=== PATIENT | male | born 1955 | race African-American/Black ===

== ENCOUNTER 2016-04-04 05:20 | Emergency (ER) | payer OTHER ==
[2016-04-04 06:55] LABS: ABSOLUTE EOSINOPHILS # (AUTO) 0.2 10^3/uL (0.0-0.6); ABSOLUTE LYMPHOCYTES (AUTO) 1.2 10^3/uL (0.5-4.7); ABSOLUTE MONOCYTES (AUTO) 0.5 10^3/uL (0.1-1.4); ABSOLUTE NEUT (AUTO) 3.7 10^3/uL (1.7-8.2); BASOPHILS % (AUTO) 0.5 % (0-2); EOSINOPHILS % (AUTO) 4.1 % (0-6); HEMOGLOBIN 12.1 g/dL (13.5-17.0); HGB HCT DIFFERENCE -1.7; LYMPHOCYTES % (AUTO) 21.6 % (13-45); MEAN CORPUSCULAR HEMOGLOBIN 27.7 pg (27.0-33.4); MEAN CORPUSCULAR HGB CONC 31.9 g/dL (32.0-36.0); MEAN CORPUSCULAR VOLUME 87 fl (80-97); MONOCYTES % (AUTO) 9.5 % (3-13); RED BLOOD COUNT 4.38 10^6/uL (4.35-5.55); RED CELL DISTRIBUTION WIDTH 15.4 % (11.5-14.0); SEGMENTED NEUTROPHILS % (AUTO) 64.3 % (42-78); WHITE BLOOD COUNT 5.8 10^3/uL (4.0-10.5)
[2016-04-04 07:08] LABS: ALANINE AMINOTRANSFERASE 19 U/L (21-72); ALBUMIN 4.2 g/dL (3.5-5.0); ALKALINE PHOSPHATASE 104 U/L (38-126); ANION GAP 14 (5-19); ASPARTATE AMINO TRANSFERASE 11 U/L (17-59); BILIRUBIN,TOTAL 0.8 mg/dL (0.2-1.3); BLOOD UREA NITROGEN 12 mg/dL (7-20); CALCIUM 9.4 mg/dL (8.4-10.2); CARBON DIOXIDE 25 mmol/L (22-30); CHLORIDE 104 mmol/L (98-107); CREATININE RESULT 0.96 mg/dL (0.52-1.25); GLUCOSE 106 mg/dL (75-110); LIPASE 26.3 U/L (23-300); TOTAL PROTEIN 7.1 g/dL (6.3-8.2)
--- NOTE | 2016-04-04 07:15 | ER Document Report ---
ED General - General Chief Complaint: Abdominal Pain Stated Complaint: ABDOMINAL PAIN Mode of Arrival: Ambulatory Information source: Patient Notes: 60-year-old male presents with complaints of constipation. pt denies any fevers or chills, nausea or vomiting. Pt notes he last had a bowel movement 3-4 days ago. TRAVEL OUTSIDE OF THE [place] IN LAST 30 DAYS: No - HPI Onset: Other - 4 days Onset/Duration: Intermittent Quality of pain: Cramping Severity: Mild Pain Level: 1 Associated symptoms: None Exacerbated by: Denies Relieved by: Denies Similar symptoms previously: No Recently seen / treated by doctor: No - Related Data Allergies/Adverse Reactions: No Known Allergies Allergy (Verified 08/02/14 20:07) Past Medical History - Social History Smoking Status: Never Smoker Cigarette use (# per day): No Chew tobacco use (# tins/day): No Smoking Education Provided: No Frequency of alcohol use: None Drug Abuse: None Family History: Reviewed & Not Pertinent Patient has suicidal ideation: No Patient has homicidal ideation: No - Past Medical History Cardiac Medical History: Reports: Hx Coronary Artery Disease, Hx Hypercholesterolemia, Hx Hypertension Pulmonary Medical History: Reports: Hx COPD Neurological Medical History: Reports: Hx Cerebrovascular Accident Renal/ Medical History: Denies: Hx Peritoneal Dialysis Past Surgical History: Reports: Hx Cardiac Surgery, Hx Coronary Stent - Immunizations Hx Diphtheria, Pertussis, Tetanus Vaccination: Yes Review of Systems - Review of Systems Notes: REVIEW OF SYSTEMS: CONSTITUTIONAL : Denies fever, chills, or sweats. Denies recent illness. EENT: Denies eye, ear, throat, or mouth pain or symptoms. Denies nasal or sinus congestion or discharge. Denies throat, tongue, or mouth swelling or difficulty swallowing. CARDIOVASCULAR: Denies chest pain. Denies palpitations or racing or irregular heart beat. Denies ankle edema. RESPIRATORY: Denies cough, cold, or chest congestion. Denies shortness of breath, difficulty breathing, or wheezing. GASTROINTESTINAL: abd pain constipation GENITOURINARY: Denies difficulty urinating, painful urination, burning, frequency, blood in urine, or discharge. MUSCULOSKELETAL: Denies back or neck pain or stiffness. Denies joint pain or swelling. SKIN: Denies rash, lesions or sores. HEMATOLOGIC : Denies easy bruising or bleeding. LYMPHATIC: Denies swollen, enlarged glands. NEUROLOGICAL: Denies confusion or altered mental status. Denies passing out or loss of consciousness. Denies dizziness or lightheadedness. Denies headache. Denies new weakness or paralysis or loss of use of either side. Denies problems with gait or speech. Denies sensory loss, numbness, or tingling. Denies seizures. PSYCHIATRIC: Denies anxiety or stress. Denies depression, suicidal ideation, or homicidal ideation. ALL OTHER SYSTEMS REVIEWED AND NEGATIVE. Dictation was performed using [employer] voice recognition software PHYSICAL EXAMINATION: GENERAL: Well-appearing, well-nourished and in no acute distress. HEAD: Atraumatic, normocephalic. EYES: Pupils equal round and reactive to light, extraocular movements intact, sclera anicteric, conjunctiva are normal. ENT: Nares patent, oropharynx clear without exudates. Moist mucous membranes. NECK: Normal range of motion, supple without lymphadenopathy LUNGS: Breath sounds clear to auscultation bilaterally and equal. No wheezes rales or rhonchi. HEART: Regular rate and rhythm without murmurs ABDOMEN: Soft, nontender, nondistended abdomen. No guarding, no rebound. No masses appreciated. G tube in place Musculoskeletal: right sided deficits NEUROLOGICAL: Cranial nerves grossly intact. Normal speech, normal gait. Normal sensory, motor exams PSYCH: Normal mood, normal affect. SKIN: Warm, Dry, normal turgor, no rashes or lesions noted. Physical Exam - Vital signs Vitals: Temp Pulse Resp BP Pulse Ox 98.5 F 84 20 136/94 H 99 04/04/16 05:32 04/04/16 05:32 04/04/16 05:32 04/04/16 05:32 04/04/16 05:32 Course - Re-evaluation Re-evalutation: 04/04/16 07:14 Patient notes his G-tube is to be removed, and there waiting for the blood thinners to come out of his system before they were to do so I believe patient has constipation lab work imaging are pending to rule out any other etiology 04/04/16 07:54 abdominal abnormalities are lab work noted, patient will be sent home with Raya After performing a Medical Screening Examination, I estimate there is LOW risk for ACUTE APPENDICITIS, BOWEL OBSTRUCTION, ACUTE CHOLECYSTITIS, PERFORATED DIVERTICULITIS, INCARCERATED HERNIA, PANCREATITIS, or PERFORATED ULCER, thus I consider the discharge disposition reasonable. Also, there is no evidence or peritonitis, sepsis, or toxicity. The patient and I have discussed the diagnosis and risks, and we agree with discharging home with close follow-up with the understanding that symptoms and presentations can change. We also discussed returning to the Emergency Department immediately if new or worsening symptoms occur. We have discussed the symptoms which are most concerning (e.g., bloody stool, fever, changing or worsening pain, intractable vomiting - standard verbal up date) that necessitate immediate return. - Vital Signs Vital signs: Temp Pulse Resp BP Pulse Ox 98.5 F 79 20 136/94 H 97 04/04/16 05:33 04/04/16 05:33 04/04/16 05:33 04/04/16 05:33 04/04/16 05:33 - Laboratory Result Diagrams: 04/04/16 06:45 04/04/16 06:45 Laboratory results interpreted by me: 04/04/16 04/04/16 06:45 06:45 Hgb 12.1 L MCHC 31.9 L RDW 15.4 H AST 11 L ALT 19 L - Diagnostic Test Radiology reviewed: Image reviewed, Reports reviewed Discharge - Discharge Clinical Impression: Constipation Qualifiers: Constipation type: unspecified constipation type Qualified Code(s): K59.00 - Constipation, unspecified Condition: Stable Disposition: HOME, SELF-CARE Instructions: Constipation ([facility]) Prescriptions: Peg 3350/Na Sulf,Bicarb,Cl/KCl [Golytely Solution 4000 ml] 4,000 ml PO DAILY #1 bottle Referrals: JOSEPHINE BUCK MD [Primary Care Provider] - Follow up in 3-5 days
[2016-04-04 08:18] VITALS: BP 142/98
== END 2016-04-04 08:18 | disposition home or self-care (01) ==
LOC: ER 05:20
DX: K59.00 Constipation, unspecified (principal); R10.9 Unspecified abdominal pain; I25.10 Atherosclerotic heart disease of native coronary artery without angina pectoris; E78.00 Pure hypercholesterolemia, unspecified; I10 Essential (primary) hypertension; J44.9 Chronic obstructive pulmonary disease, unspecified; Z86.73 Personal history of transient ischemic attack (TIA), and cerebral infarction without residual deficits
CPT/HCPCS: 36415; 74022; 80053; 83690; 85025; 99284

== ENCOUNTER 2016-04-15 16:53 | Observation (INO) | payer MEDICAID ==
[2016-04-15 18:36] LABS: HEMOGLOBIN 12.6 g/dL (13.5-17.0); HGB HCT DIFFERENCE -1.2; MEAN CORPUSCULAR HEMOGLOBIN 27.9 pg (27.0-33.4); MEAN CORPUSCULAR HGB CONC 32.3 g/dL (32.0-36.0); MEAN CORPUSCULAR VOLUME 86 fl (80-97); RED BLOOD COUNT 4.52 10^6/uL (4.35-5.55); WHITE BLOOD COUNT 6.1 10^3/uL (4.0-10.5)
[2016-04-15 18:48] LABS: ALANINE AMINOTRANSFERASE 32 U/L (21-72); ALBUMIN 3.7 g/dL (3.5-5.0); ALKALINE PHOSPHATASE 90 U/L (38-126); ANION GAP 11 (5-19); ASPARTATE AMINO TRANSFERASE 13 U/L (17-59); BILIRUBIN,TOTAL 0.5 mg/dL (0.2-1.3); BLOOD UREA NITROGEN 15 mg/dL (7-20); CALCIUM 9.5 mg/dL (8.4-10.2); CARBON DIOXIDE 28 mmol/L (22-30); CHLORIDE 105 mmol/L (98-107); CREATININE RESULT 0.84 mg/dL (0.52-1.25); GLUCOSE 86 mg/dL (75-110); POTASSIUM 3.9 mmol/L (3.6-5.0); TOTAL PROTEIN 7.5 g/dL (6.3-8.2)
[2016-04-15] MEDS ORDERED: METOPROLOL TARTRATE 50 MG TABLET PO ONE (23:00)
[2016-04-15] MEDS ORDERED: ATORVASTATIN CALCIUM 80 MG TABLET PO ONE (23:00)
[2016-04-15] MEDS ORDERED: GLYCOPYRROLATE 1 MG TABLET PO ONE (23:00)
[2016-04-16 00:58] LABS: APPEARANCE,URINE CLEAR; BILIRUBIN,URINE NEGATIVE (NEGATIVE); GLUCOSE, URINE NEGATIVE (NEGATIVE); KETONES,URINE NEGATIVE (NEGATIVE); LEUKOCYTE ESTERASE,URINE TRACE (NEGATIVE); NITRITE,URINE NEGATIVE (NEGATIVE); PROTEIN,URINE NEGATIVE (NEGATIVE); URINE SPECIFIC GRAVITY 1.013; UROBILINOGEN,URINE NEGATIVE mg/dL (<2.0)
[2016-04-16] MEDS ORDERED: GLYCOPYRROLATE 1 MG TABLET ONE (01:30)
[2016-04-16] MEDS: LANSOPRAZOLE 15 MG TAB.RAP.DR PO SCH (06:26)
[2016-04-16] MEDS: CLOPIDOGREL BISULFATE 75 MG TABLET PO SCH (10:53)
[2016-04-16] MEDS: ASPIRIN 81 MG TABLET, CHEWABLE PO SCH (10:53)
[2016-04-16] MEDS: LOSARTAN POTASSIUM 50 MG TABLET PO SCH (10:54)
[2016-04-16] MEDS: METOPROLOL TARTRATE 50 MG TABLET PO SCH ×2 (10:55→22:14)
[2016-04-16] MEDS: GLYCOPYRROLATE 1 MG TABLET PO SCH ×3 (10:57→18:31)
[2016-04-16] MEDS ORDERED: PEG 3350/NA SULF,BICARB,CL/KCL 4000 ML PO ONE (17:00)
--- NOTE | 2016-04-16 17:56 | PDOC CONSULTATION ---
Consultation Consult Date: 04/16/16 Attending physician:: JORDAN CULP Consult reason:: Hematochezia History of Present Illness Admission Date/PCP: 04/15/16 16:53 JOSEPHINE BUCK, History of Present Illness: JANIE STORM is a 60 year old male Patient is directly admitted from Dr Murray's office had an episode of hematochezia not associated with a syncopal episode states that blood of fair quantity , bright red blood in nature it is unclear if he has ever had a colonoscopy done in the past his Hgb seems to be stable and denies any ongoing issues states that it has happened in the past no new medications denies any associated chest pain or shortness of breath denies any weight loss there is no changes in his bowel habits, although he seems to indicate that he has been having more constipation denies any family history of colon cancer Past Medical History Cardiac Medical History: Reports: Coronary Artery Disease, Hyperlipidema, Hypertension Pulmonary Medical History: Reports: Chronic Obstructive Pulmonary Disease (COPD) Past Surgical History Past Surgical History: Reports: Coronary Stent Social History Smoking Status: Former Smoker Frequency of Alcohol Use: None Hx Recreational Drug Use: No Drugs: None Hx Prescription Drug Abuse: No Family History Family History: Reviewed & Not Pertinent Parental Family History Reviewed: Yes Children Family History Reviewed: Unknown Sibling(s) Family History Reviewed.: Unknown Medication/Allergy Home Medications: Aspirin [Aspirin 81 mg Chewable Tablet] 81 mg PO DAILY 04/15/16 Atorvastatin Calcium [Lipitor 80 mg Tablet] 80 mg PO QHS 04/15/16 Clopidogrel Bisulfate [Plavix 75 mg Tablet] 75 mg PO DAILY 04/15/16 Glycopyrrolate [Robinul Forte 1 Mg Tablet] 1 mg PO TID 04/15/16 Lansoprazole [Prevacid 15 Mg Odt Tablet] 15 mg PO DAILY@0600 04/15/16 Losartan Potassium [Cozaar 100 mg Tablet] 100 mg PO DAILY 04/15/16 Metoprolol Tartrate [Lopressor 50 mg Tablet] 50 mg PO Q12 04/15/16 Allergies/Adverse Reactions: No Known Allergies Allergy (Verified 08/02/14 20:07) Review of Systems Constitutional: ABSENT: fever(s), headache(s), night sweats, weakness Eyes: ABSENT: visual disturbances Ears: ABSENT: hearing changes Nose, Mouth, and Throat: ABSENT: mouth pain, sore throat Cardiovascular: PRESENT: chest pain. ABSENT: orthropnea, palpitations Respiratory: ABSENT: dyspnea, hemoptysis Gastrointestinal: PRESENT: hematochezia. ABSENT: diarrhea, dysphagia, hematemesis, melena Genitourinary: ABSENT: dysuria, hematuria Musculoskeletal: ABSENT: back pain, deformity Integumentary: ABSENT: lesions, pruritus Neurological: ABSENT: frequent falls, paresthesias, syncope, tremor(s), vertigo Psychiatric: ABSENT: anxiety, homidical ideation Endocrine: ABSENT: heat intolerance, polydipsia, polyphagia, polyuria Hematologic/Lymphatic: ABSENT: easy bruising, lymphadenopathy Allergic/Immunologic: ABSENT: seasonal rhinorrhea Physical Exam Vital Signs: Temp Pulse Resp BP Pulse Ox 98.5 F 68 20 140/88 H 98 04/16/16 16:37 04/16/16 16:37 04/16/16 16:37 04/16/16 16:37 04/16/16 16:37 Intake & Output 04/15/16 04/16/16 04/17/16 06:59 06:59 06:59 Intake Total 300 459 Output Total 1000 Balance -700 459 Weight 92.8 kg General appearance: PRESENT: no acute distress, well-developed, well-nourished Head exam: PRESENT: atraumatic, normocephalic Eye exam: PRESENT: EOMI, PERRLA. ABSENT: nystagmus, periorbital swelling, scleral icterus Mouth exam: PRESENT: moist, neck supple Neck exam: ABSENT: meningismus, tenderness, thyromegaly Respiratory exam: PRESENT: clear to auscultation jose luis, symmetrical, unlabored. ABSENT: accessory muscle use, chest wall tenderness, rhonchi, stridor, tachypnea , wheezes Cardiovascular exam: PRESENT: RRR, +S1, +S2. ABSENT: gallop, rubs Pulses: PRESENT: normal carotid pulses GI/Abdominal exam: PRESENT: normal bowel sounds, soft. ABSENT: Rockwell's sign, rebound, rigid, tenderness Extremities exam: PRESENT: joint swelling Musculoskeletal exam: PRESENT: full ROM, normal inspection Neurological exam: PRESENT: alert, awake, CN II-XII grossly intact Psychiatric exam: PRESENT: appropriate affect Skin exam: PRESENT: normal color. ABSENT: mottled, pallor, petechiae, rash, urticaria, vesicles Results Laboratory Results: 04/15/16 18:25 04/15/16 18:25 04/15/16 04/15/16 04/16/16 18:25 18:25 00:20 WBC 6.1 RBC 4.52 Hgb 12.6 L Hct 39.0 MCV 86 MCH 27.9 MCHC 32.3 RDW 15.0 H Plt Count 218 Sodium 144.0 Potassium 3.9 Chloride 105 Carbon Dioxide 28 Anion Gap 11 BUN 15 Creatinine 0.84 Est GFR ( Amer) > 60 Est GFR (Non-Af Amer) > 60 Glucose 86 Calcium 9.5 Total Bilirubin 0.5 AST 13 L ALT 32 Alkaline Phosphatase 90 Total Protein 7.5 Albumin 3.7 Urine Color YELLOW Urine Appearance CLEAR Urine pH 7.0 Ur Specific [place] 1.013 Urine Protein NEGATIVE Urine Glucose (UA) NEGATIVE Urine Ketones NEGATIVE Urine Blood NEGATIVE Urine Nitrite NEGATIVE Ur Leukocyte Esterase TRACE H Urine WBC (Auto) 43 Urine RBC (Auto) 2 Impressions: Abdomen/Pelvis CT 04/15/16 00:00 IMPRESSION: NO ACUTE FINDINGS WITHIN THE ABDOMEN OR PELVIS. CHRONIC CHANGES ABOVE. Assessment & Plan - Diagnosis (1) Hematochezia Plan: will need colonoscopy to exclude lesion Risks, benefits and alternatives are discussed with the patient in detail Further recommendations to follow he seems to be willing to proceed follow up H/H transfuse as necessary CT scan is reviewed - Time Time Spent: 50 to 70 Minutes
--- NOTE | 2016-04-16 19:16 | PDOC H&P ---
History of Present Illness Admission Date/PCP: 04/15/16 16:53 JOSEPHINE BUCK, History of Present Illness: Patient 60-year-old with history of CVA and right-sided hemiplegia. He came to the office because of rectal bleed, he said he saw fresh blood with clots, he was admitted directly from the office into the hospital for evaluation and management of his symptoms Past Medical History Cardiac Medical History: Reports: Coronary Artery Disease, Hyperlipidema, Hypertension Pulmonary Medical History: Reports: Chronic Obstructive Pulmonary Disease (COPD) Neurological Medical History: Reports: Ischemic CVA - Right-sided hemiplegia Past Surgical History Past Surgical History: Reports: Coronary Stent Social History Smoking Status: Former Smoker Frequency of Alcohol Use: None Hx Recreational Drug Use: No Drugs: None Hx Prescription Drug Abuse: No Family History Family History: Reviewed & Not Pertinent Parental Family History Reviewed: Yes Children Family History Reviewed: Yes Sibling(s) Family History Reviewed.: Yes Medication/Allergy Home Medications: Aspirin [Aspirin 81 mg Chewable Tablet] 81 mg PO DAILY 04/15/16 Atorvastatin Calcium [Lipitor 80 mg Tablet] 80 mg PO QHS 04/15/16 Clopidogrel Bisulfate [Plavix 75 mg Tablet] 75 mg PO DAILY 04/15/16 Glycopyrrolate [Robinul Forte 1 Mg Tablet] 1 mg PO TID 04/15/16 Lansoprazole [Prevacid 15 Mg Odt Tablet] 15 mg PO DAILY@0600 04/15/16 Losartan Potassium [Cozaar 100 mg Tablet] 100 mg PO DAILY 04/15/16 Metoprolol Tartrate [Lopressor 50 mg Tablet] 50 mg PO Q12 04/15/16 Allergies/Adverse Reactions: No Known Allergies Allergy (Verified 08/02/14 20:07) Review of Systems Constitutional: PRESENT: fatigue Cardiovascular: ABSENT: as per HPI, chest pain, dyspnea on exertion, edema, orthropnea, palpitations, other Respiratory: ABSENT: as per HPI, cough, dyspnea, hemoptysis, sputum, other Gastrointestinal: PRESENT: hematochezia Genitourinary: ABSENT: as per HPI, difficulty urinating, dysuria, hematuria, nocturia, other Neurological: PRESENT: abnormal gait Physical Exam Vital Signs: Temp Pulse Resp BP Pulse Ox 98.5 F 68 20 140/88 H 98 04/16/16 16:37 04/16/16 16:37 04/16/16 16:37 04/16/16 16:37 04/16/16 16:37 Intake & Output 04/15/16 04/16/16 04/17/16 06:59 06:59 06:59 Intake Total 300 1365 Output Total 1000 Balance -700 1365 Weight 92.8 kg General appearance: PRESENT: no acute distress Eye exam: PRESENT: PERRLA Respiratory exam: PRESENT: clear to auscultation jose luis Cardiovascular exam: PRESENT: +S1, +S2 GI/Abdominal exam: PRESENT: soft Neurological exam: PRESENT: alert, other - Right-sided hemiplegia Results Laboratory Results: 04/15/16 18:25 04/15/16 18:25 04/16/16 00:20 Urine Color YELLOW Urine Appearance CLEAR Urine pH 7.0 Ur Specific [place] 1.013 Urine Protein NEGATIVE Urine Glucose (UA) NEGATIVE Urine Ketones NEGATIVE Urine Blood NEGATIVE Urine Nitrite NEGATIVE Ur Leukocyte Esterase TRACE H Urine WBC (Auto) 43 Urine RBC (Auto) 2 Impressions: Abdomen/Pelvis CT 04/15/16 00:00 IMPRESSION: NO ACUTE FINDINGS WITHIN THE ABDOMEN OR PELVIS. CHRONIC CHANGES ABOVE. Assessment & Plan - Diagnosis (1) Hematochezia Is this a current diagnosis for this admission?: YesPlan: Patient is admitted into the hospital, the differential diagnoses include, a bleeding, diverticulosis, hemorrhoids, colonic neoplasm, AV malformation of the colon. The hemogram did not show any anemia, no indication for blood transfusion, CT scan of the abdomen and pelvis was done and did not show any acute pathology. GI consultation will be obtained (2) Hypertension Qualifiers: Hypertension type: essential hypertension Qualified Code(s): I10 - Essential (primary) hypertension Is this a current diagnosis for this admission?: Yes
[2016-04-16] MEDS ORDERED: ATORVASTATIN CALCIUM 80 MG TABLET PO SCH (22:00)
[2016-04-17] MEDS: LANSOPRAZOLE 15 MG TAB.RAP.DR PO SCH (05:16)
[2016-04-17] MEDS ORDERED: NALOXONE HCL INJ/PF 0.4 MG/1 ML SDV ONE (10:49)
[2016-04-17] MEDS ORDERED: ONDANSETRON HCL INJ/PF 4 MG/2 ML SDV ONE (10:49)
[2016-04-17] MEDS ORDERED: DIPHENHYDRAMINE HCL 50 MG/ML VIAL ONE (10:49)
[2016-04-17] MEDS ORDERED: PROMETHAZINE HCL INJ 25 MG/1 ML VIAL ONE (10:49)
[2016-04-17] MEDS ORDERED: MIDAZOLAM 2 MG/2 ML INJ ONE (10:49)
[2016-04-17] MEDS ORDERED: EPINEPHRINE INJ 1 MG/10 ML DISP.SYRIN ONE (10:50)
[2016-04-17] MEDS ORDERED: GLUCAGON,HUMAN RECOMB 1 MG INJ ONE (10:50)
[2016-04-17] MEDS ORDERED: FLUMAZENIL INJ 0.5 MG/5 ML VIAL IV ONE (10:50)
[2016-04-17] MEDS: CLOPIDOGREL BISULFATE 75 MG TABLET PO SCH (11:00)
[2016-04-17] MEDS: ASPIRIN 81 MG TABLET, CHEWABLE PO SCH (11:00)
[2016-04-17] MEDS: LOSARTAN POTASSIUM 50 MG TABLET PO SCH (11:01)
[2016-04-17] MEDS: GLYCOPYRROLATE 1 MG TABLET PO SCH (11:02)
[2016-04-17] MEDS: METOPROLOL TARTRATE 50 MG TABLET PO SCH (11:02)
[2016-04-17] MEDS: FENTANYL CITRATE INJ/PF 100 MCG/2 ML AMPUL ONE ×2 (11:55→12:00)
--- NOTE | 2016-04-17 12:31 | Operative Report ---
Operative Report DATE OF SURGERY: 04/17/16 Operative Report: The risks, benefits and alternatives of the procedure including risks of bleeding, perforation requiring surgery are explained to the patient detail and informed consent is obtained. Patient is placed in a left, lateral decubital position. Patient is brought to the endoscopy suite. Timeout is called. Conscious sedation medications are administered. A rectal examination was done which did not reveal any masses, tears or fissures. An Olympus videoscope was inserted into the patient's rectum. The scope was then carefully advanced all the way to the cecum. The cecum was identified by the usual anatomical landmarks including the ileocecal valve as well as the appendiceal office. Prep is good. Photo documentations obtained. Scope was then sequentially pulled back via the various segments of the colon including the ascending colon , hepatic flexure, transverse colon, splenic flexure, descending colon and finally into the rectosigmoid portions of the colon. Retroflexion maneuvers performed. PREOPERATIVE DIAGNOSIS: Hematochezia POSTOPERATIVE DIAGNOSIS: Small rectal polyp status post biopsy, internal hemorrhoids. No active bleeding noted OPERATION: Colonoscopy with biopsy SURGEON: JORDAN CULP ANESTHESIA: Moderate Sedation - 2 mg of Versed, 50 g of fentanyl. TISSUE REMOVED OR ALTERED: Colon specimens retrieved COMPLICATIONS: None. ESTIMATED BLOOD LOSS: none. INTRAOPERATIVE FINDINGS: As described above. No masses, AVMs, diverticulosis noted PROCEDURE: Patient tolerated the procedure well. No immediate postprocedure complications are noted. Patient is discharged in good condition. Discharge date 04/17/2016. Discharge diet: Regular. Discharge activity: Regular. Surveillance colonoscopy in 5 years He can be discharged from the hospital obtained no other significant medical issues Follow-up as outpatient 2-3 week follow-up to discuss findings
--- NOTE | 2016-04-17 15:26 | PDOC DISCHARGE SUMMARY ---
General - Admit/Disc Date/PCP Admission Date/Primary Care Provider: 04/15/16 17:19 JOSEPHINE BUCK MD Discharge Date: 04/17/16 - Discharge Diagnosis (1) Hematochezia Is this a current diagnosis for this admission?: Yes (2) Hypertension Is this a current diagnosis for this admission?: Yes - Additional Information Discharge Diet: As Tolerated Discharge Activity: Activity As Tolerated Home Medications: Aspirin [Aspirin 81 mg Chewable Tablet] 81 mg PO DAILY 04/15/16 Atorvastatin Calcium [Lipitor 80 mg Tablet] 80 mg PO QHS 04/15/16 Clopidogrel Bisulfate [Plavix 75 mg Tablet] 75 mg PO DAILY 04/15/16 Glycopyrrolate [Robinul Forte 1 mg Tablet] 1 mg PO TID 04/15/16 Lansoprazole [Prevacid 15 mg Odt Tablet] 15 mg PO DAILY@0600 04/15/16 Losartan Potassium [Cozaar 100 mg Tablet] 100 mg PO DAILY 04/15/16 Metoprolol Tartrate [Lopressor 50 mg Tablet] 50 mg PO Q12 04/15/16 History of Present Illness History of Present Illness: Patient 60-year-old with history of CVA and right-sided hemiplegia. He came to the office because of rectal bleed, he said he saw fresh blood with clots, he was admitted directly from the office into the hospital for evaluation and management of his symptoms Hospital Course Hospital Course: Patient was admitted because of rectal hemorrhage, he was seen consultation by GI, Dr. Farrell and he had colonoscopy done and showed a polyp in the sigmoid colon and and internal hemorrhoids. He did not require blood transfusion Physical Exam Vital Signs: Temp Pulse Resp BP Pulse Ox 98.0 F 54 L 25 H 151/109 H 96 04/17/16 15:03 04/17/16 15:03 04/17/16 15:03 04/17/16 15:03 04/17/16 15:03 Intake & Output 04/16/16 04/17/16 04/18/16 06:59 06:59 06:59 Intake Total 300 1375 500 Output Total 1000 Balance -700 1375 500 Weight 92.8 kg 94.7 kg General appearance: PRESENT: no acute distress Eye exam: PRESENT: PERRLA Respiratory exam: PRESENT: clear to auscultation jose luis Cardiovascular exam: PRESENT: +S1, +S2 GI/Abdominal exam: PRESENT: soft Skin exam: PRESENT: intact Results Laboratory Results: 04/15/16 18:25 04/15/16 18:25 04/16/16 21:00 Stool Occult Blood NEGATIVE Impressions: Abdomen/Pelvis CT 04/15/16 00:00 IMPRESSION: NO ACUTE FINDINGS WITHIN THE ABDOMEN OR PELVIS. CHRONIC CHANGES ABOVE.
[2016-04-22 11:11] VITALS: BP 151/109
== END 2016-04-17 16:33 | disposition home or self-care (01) ==
LOC: UNDOADMOB 16:53 → INTOOBSV 16:53 → 3W 16:53
PROVIDERS: ADMIT Internal Medicine; ATTEND Internal Medicine
PROC: 0DBP8ZX Excision of Rectum, Via Natural or Artificial Opening Endoscopic, Diagnostic (ICD-10-PCS; principal; 2016-04-17 11:30)
DX: K92.1 Melena (principal); K62.1 Rectal polyp; D12.5 Benign neoplasm of sigmoid colon; K64.8 Other hemorrhoids; I25.10 Atherosclerotic heart disease of native coronary artery without angina pectoris; I10 Essential (primary) hypertension; E78.5 Hyperlipidemia, unspecified; J44.9 Chronic obstructive pulmonary disease, unspecified; I69.351 Hemiplegia and hemiparesis following cerebral infarction affecting right dominant side; Z95.5 Presence of coronary angioplasty implant and graft; Z79.82 Long term (current) use of aspirin; Z79.02 Long term (current) use of antithrombotics/antiplatelets; Z79.899 Other long term (current) drug therapy
CPT/HCPCS: 45380; 36415; 85027; 82272; 80076; 80048; 81001; 88305 ×2; 74176; G0378 ×3; G0379; J2250; J3010; J3490 ×7; J0171; J1200; J1610; J2310; J2405; J2550

== ENCOUNTER 2016-05-04 17:15 | Emergency (ER) | payer MEDICAID, OTHER ==
[2016-05-04] MEDS ORDERED: CYCLOBENZAPRINE HCL 10 MG TABLET PO ONE (17:43)
[2016-05-04] MEDS ORDERED: IBUPROFEN 600 MG TABLET PO ONE (17:43)
--- NOTE | 2016-05-04 17:44 | ER Document Report ---
ED General - General Chief Complaint: Numbness Stated Complaint: NECK PAIN Mode of Arrival: Medic Information source: Patient, [facility] Records Notes: This is a 60-year-old male who presents with right sided neck pain and stiffness since awakening this morning. No history of trauma or injury. History is somewhat difficult as patient does have some dysarthria from his prior CVA last year. He does have a right hemiparesis secondary to the CVA. He denies any new weakness today. He does report some transient numbness and tingling to all 4 extremities earlier today. At this time his only complaint is soreness to the right side of his posterior neck. He denies any fevers, chills or systemic symptoms or recent illness. No headache. No changes in vision. His is at the bedside and states that his mental status is at baseline as well as speech. TRAVEL OUTSIDE OF THE [place] IN LAST 30 DAYS: No - Related Data Allergies/Adverse Reactions: No Known Allergies Allergy (Verified 05/04/16 17:47) Home Medications: Current Home Medications Amlodipine Besylate 10 mg PO DAILY 05/04/16 [History] Gabapentin 4 ml PO TID 05/04/16 [History] Glycopyrrolate 1 mg PO TID 05/04/16 [History] Omeprazole 40 mg PO DAILY 05/04/16 [History] Past Medical History - General Information source: Patient, [facility] Records - Social History Smoking Status: Unknown if Ever Smoked Family History: Reviewed & Not Pertinent - Past Medical History Cardiac Medical History: Reports: Hx Coronary Artery Disease, Hx Hypercholesterolemia, Hx Hypertension Pulmonary Medical History: Reports: Hx COPD Neurological Medical History: Reports: Hx Cerebrovascular Accident. Denies: Hx Seizures Renal/ Medical History: Denies: Hx Peritoneal Dialysis Past Surgical History: Reports: Hx Cardiac Surgery, Hx Coronary Stent - Immunizations Hx Diphtheria, Pertussis, Tetanus Vaccination: Yes Review of Systems - Review of Systems Notes: REVIEW OF SYSTEMS: CONSTITUTIONAL : Denies fever, chills, or sweats. Denies recent illness. EENT: Denies eye, ear, throat, or mouth pain or symptoms. Denies nasal or sinus congestion. CARDIOVASCULAR: Denies chest pain. RESPIRATORY: Denies cough, cold, or chest congestion. Denies shortness of breath, difficulty breathing, or wheezing. GASTROINTESTINAL: Denies abdominal pain. Denies nausea, vomiting, or diarrhea. GENITOURINARY: Denies difficulty urinating MUSCULOSKELETAL: as per HPI SKIN: Denies rash or skin lesions. NEUROLOGICAL: As per HPI. Denies altered mental status or loss of consciousness. Denies headache. PSYCHIATRIC: Denies anxiety or stress or depression. ALL OTHER SYSTEMS REVIEWED AND NEGATIVE. Physical Exam - Vital signs Vitals: Resp 20 05/04/16 17:17 Temperature 98.1 per she 141/99 heart rate 63 respirations 16 96% on room air - Notes Notes: PHYSICAL EXAMINATION: GENERAL: Well-appearing, well-nourished and in no acute distress. HEAD: Atraumatic, normocephalic. EYES: Pupils equal round and reactive to light, extraocular movements intact ENT: nares patent, oropharynx clear without exudates. Moist mucous membranes. Cnronic nodularity to right side of lower lip. NECK: Normal range of motion, supple without lymphadenopathy LUNGS: Breath sounds clear to auscultation bilaterally and equal. No wheezes rales or rhonchi. HEART: Regular rate and rhythm without murmurs ABDOMEN: Soft, nontender, normoactive bowel sounds. No guarding, no rebound. No masses appreciated. EXTREMITIES: RUE hemiparesis, baseline. No edema. Motor +5 over 5 left upper and left lower extremity. Right lower extremity with dorsiflexion and plantar flexion intact. Sensation intact NEUROLOGICAL: Cranial nerves grossly intact. No facial droop or asymmetry. Baseline dysarthria. Motor +5 over 5 left upper and left lower extremity. Right lower extremity with dorsiflexion and plantar flexion intact. Sensation intact PSYCH: Normal mood, normal affect. SKIN: Warm, Dry, normal turgor, no rashes or lesions noted. Course - Re-evaluation Re-evalutation: 05/04/16 19:05 Patient reevaluated. He states that his right-sided posterior neck pain has resolved after the Flexeril and ibuprofen. At this point he adds to the history that his numbness and tingling on the left side is new in the past couple of days. Again no motor weakness. Will CT his head as symptoms have been ongoing for about 3 days now. 05/04/16 21:[address] reviewed as negative. Patient reevaluated and states that he is feeling just fine. He was neurologically intact with the exception of the right hemiparesis from prior CVA. Again his family states is at baseline. Patient in his power of patent attorney were both under the impression that he had been taken off his aspirin however his recent discharge summary shows that he is still prescribed aspirin and Plavix which she should be taking. He is still taking the Plavix and I have instructed him to continue the aspirin as well. Pt will follow up with Dr Will this week. STrict return precautions discussed and he and family are very comfortable with this plan - Vital Signs Vital signs: Temp Pulse Resp BP Pulse Ox 98.1 F 20 128/93 H 98 05/04/16 17:25 05/04/16 21:38 05/04/16 21:38 05/04/16 21:38 - Laboratory Result Diagrams: 05/04/16 17:30 05/04/16 17:30 Laboratory results interpreted by me: 05/04/16 05/04/16 17:30 17:30 Hgb 13.0 L RDW 15.5 H Seg Neutrophils % 36.5 L Lymphocytes % 48.0 H Eosinophils % 6.7 H AST 16 L Creatine Kinase 50 L - Diagnostic Test Radiology reviewed: Reports reviewed - EKG Interpretation by Me Additional EKG results interpreted by me: 05/04/16 17:53 EKG at 1730 demonstrates normal sinus rhythm with a rate of 63. Normal axis, there are nonspecific T-wave changes inferiorly, there are also T-wave changes in V3 which are noted on the old EKG there is mild biphasic T-wave in V2 which appears to be new. No ST elevation or depression. Discharge - Discharge Clinical Impression: Trapezius muscle spasm, History of CVA (cerebrovascular accident), Paresthesia Condition: Stable Disposition: HOME, SELF-CARE Additional Instructions: Muscle Relaxers Muscle relaxing medications are usually prescribed for acute muscle spasm or injury to the neck and back. They are often combined with antiinflammatory pain medication for increased relief. You may stop the muscle relaxer when the pain and stiffness have improved. Start the medication again if spasms recur. Muscle relaxers may cause drowsiness, especially with the first dose. Do not operate machinery or drive while under the effects of the medication. Most muscle relaxers last up to 24 hours. Do not combine the medication with alcohol.Muscle Strain You have strained a muscle -- torn the fibers within the muscle. This often occurs with strenuous exertion, or during an injury that suddenly stretches the muscle. The seriousness of a strain varies. Some strains heal within days, others cause problems for months. X-rays cannot show a muscle strain. X-rays are taken only if symptoms suggest that a fracture could be present. The usual treatment of a muscle strain is rest and ice packs. Sometimes, a sling, splint, or crutches may be necessary to rest the muscle. The muscle can be used again once pain subsides. Severe strains require a special exercise and stretching program to prevent permanent stiffness and disability. Your doctor will advise you if this will be necessary. Call the doctor immediately if pain or swelling becomes severe, or if numbness or discoloration develop. At this time there is no evidence for an acute stroke. Please follow up with her primary care physician doctor tomorrow. As we discussed you need to resume your aspirin regimen of 81 mg per day. Return to the emergency department for any worsening symptoms. Prescriptions: Aspirin [Aspirin 81 mg Chewable Tablet] 81 mg PO DAILY #1 pkg Referrals: JOSEPHINE BUCK MD [Primary Care Provider] - Follow up as needed
[2016-05-04 18:10] LABS: ABSOLUTE EOSINOPHILS # (AUTO) 0.4 10^3/uL (0.0-0.6); ABSOLUTE LYMPHOCYTES (AUTO) 2.5 10^3/uL (0.5-4.7); ABSOLUTE MONOCYTES (AUTO) 0.4 10^3/uL (0.1-1.4); ABSOLUTE NEUT (AUTO) 1.9 10^3/uL (1.7-8.2); BASOPHILS % (AUTO) 0.7 % (0-2); EOSINOPHILS % (AUTO) 6.7 % (0-6); HEMATOCRIT 39.6 % (37.9-51.0); HGB HCT DIFFERENCE -0.6; MEAN CORPUSCULAR HEMOGLOBIN 28.3 pg (27.0-33.4); MEAN CORPUSCULAR VOLUME 86 fl (80-97); MONOCYTES % (AUTO) 8.1 % (3-13); RED BLOOD COUNT 4.61 10^6/uL (4.35-5.55); RED CELL DISTRIBUTION WIDTH 15.5 % (11.5-14.0); SEGMENTED NEUTROPHILS % (AUTO) 36.5 % (42-78); WHITE BLOOD COUNT 5.2 10^3/uL (4.0-10.5)
[2016-05-04 18:16] LABS: ALANINE AMINOTRANSFERASE 23 U/L (21-72); ALBUMIN 4.5 g/dL (3.5-5.0); ALKALINE PHOSPHATASE 94 U/L (38-126); ANION GAP 13 (5-19); ASPARTATE AMINO TRANSFERASE 16 U/L (17-59); BILIRUBIN,TOTAL 0.6 mg/dL (0.2-1.3); BLOOD UREA NITROGEN 19 mg/dL (7-20); CARBON DIOXIDE 26 mmol/L (22-30); CHLORIDE 106 mmol/L (98-107); CREATINE KINASE 50 U/L (55-170); CREATININE RESULT 0.83 mg/dL (0.52-1.25); GLUCOSE 89 mg/dL (75-110); POTASSIUM 3.9 mmol/L (3.6-5.0); SODIUM 144.9 mmol/L (137-145)
[2016-05-04 18:29] LABS: CREATINE KINASE MB < 0.22 ng/mL (<4.55); TROPONIN I < 0.012 ng/mL
--- NOTE | 2016-05-04 19:30 | EKG REPORT ---
SEVERITY:- NORMAL ECG - SINUS RHYTHM : Confirmed by: Varsha Abarca MD 04-May-2016 19:28:49
[2016-05-04] MEDS ORDERED: ASPIRIN 325 MG TABLET PO ONE (20:23)
[2016-05-04 22:00] VITALS: BP 128/93
== END 2016-05-04 21:53 | disposition home or self-care (01) ==
LOC: ER 17:15
DX: R20.0 Anesthesia of skin (principal); M54.2 Cervicalgia; M62.830 Muscle spasm of back; I25.10 Atherosclerotic heart disease of native coronary artery without angina pectoris; E78.00 Pure hypercholesterolemia, unspecified; I10 Essential (primary) hypertension; J44.9 Chronic obstructive pulmonary disease, unspecified; I69.951 Hemiplegia and hemiparesis following unspecified cerebrovascular disease affecting right dominant side; Z86.73 Personal history of transient ischemic attack (TIA), and cerebral infarction without residual deficits
CPT/HCPCS: 93005; 99284; 36415; 82553; 82550; 85025; 80053; 84484; 70450; 74176; 93010; J3490 ×2

== ENCOUNTER 2016-07-08 19:10 | Observation (INO) | payer MEDICAID ==
--- NOTE | 2016-07-08 20:21 | ER Document Report ---
ED Dizziness/Weakness - General Chief Complaint: Weakness Stated Complaint: GENERAL WEAKNESS Notes: Patient is complaining of feeling numb and tingling in his left side, including his left face, left arm, and left leg which started about an hour prior to his arrival in the emergency department. He also was slurring his speech more than normal for him, according to his brother who was at the scene and who discussed the case with EMS. The brother did not come here to the emergency department with the patient. Patient has had a previous stroke in November, about 8 months ago which left him with some difficulty walking, although he can do so and also left him with difficulty with his speech. He currently goes to speech and physical therapy. Patient denies any loss of consciousness. Denies any headache. Does complain that he hadn't had a bowel movement for 2 days. He says his private doctor has given him some powder to take to help him have his bowel movements. Patient says at this time he still feels numbness of the left hand and left face. He can swallow without difficulty. TRAVEL OUTSIDE OF THE [place] IN LAST 30 DAYS: No - Related Data Allergies/Adverse Reactions: No Known Allergies Allergy (Verified 05/04/16 17:47) Past Medical History - Social History Smoking Status: Unknown if Ever Smoked Cigarette use (# per day): No Family History: Reviewed & Not Pertinent - Past Medical History Cardiac Medical History: Reports: Hx Coronary Artery Disease, Hx Hypercholesterolemia, Hx Hypertension Pulmonary Medical History: Reports: Hx COPD Neurological Medical History: Reports: Hx Cerebrovascular Accident. Denies: Hx Seizures Endocrine Medical History: Denies: Hx Diabetes Mellitus Type 1, Hx Diabetes Mellitus Type 2 GI Medical History: Reports: Hx Gastroesophageal Reflux Disease Past Surgical History: Reports: Hx Cardiac Surgery, Hx Coronary Stent - Immunizations Hx Diphtheria, Pertussis, Tetanus Vaccination: Yes Review of Systems - Review of Systems Notes: REVIEW OF SYSTEMS: CONSTITUTIONAL : Denies fever. EENT: Denies eye, ear, nose or mouth or throat pain or other symptoms. CARDIOVASCULAR: Denies chest pain. RESPIRATORY: Denies cough, chest congestion, or shortness of breath. GASTROINTESTINAL: Denies abdominal pain or nausea, vomiting, or diarrhea. GENITOURINARY: Denies difficulty or painful urinating, urinary frequency, blood in urine. MUSCULOSKELETAL: Denies back or neck pain. Denies joint pain or swelling. SKIN: Denies rash or skin lesions. NEUROLOGICAL: Denies LOC or altered mental status. Denies headache. See history of present illness. ALL OTHER SYSTEMS REVIEWED AND NEGATIVE. Physical Exam - Vital signs Vitals: Temp Pulse Resp BP Pulse Ox 98.4 F 73 16 128/75 H 94 07/08/16 19:25 07/08/16 19:25 07/08/16 19:25 07/08/16 19:25 07/08/16 19:25 PHYSICAL EXAMINATION: GENERAL: Well-appearing, in no acute distress. Vital signs are all essentially normal. HEAD: Atraumatic, normocephalic. EYES: Pupils equal round and reactive to light, extraocular movements intact. ENT: oropharynx clear without exudates. Moist mucous membranes. Weakness or droop of the right side of the patient's face, not the left side. Probably residual from previous stroke. NECK: Normal range of motion, supple. No bruits heard. LUNGS: Breath sounds clear and equal bilaterally. HEART: Regular rate and rhythm without murmurs. ABDOMEN: Soft, nontender. No guarding or rebound. BACK: No tenderness throughout entire back. EXTREMITIES: Normal range of motion without pain. NEUROLOGICAL: Speech is slightly slurred. Weakness of the right arm, difficult to elevate with essentially no information technology specialist. Says he feels numb still of the left arm and left leg. Awake, alert, and oriented x3. PSYCH: Normal mood, normal affect. SKIN: Warm, dry, no rashes. Course - Re-evaluation Re-evalutation: 07/08/16 21:34 Patient remained stable throughout his stay in the department. Lab studies were all normal. CT scan showed atrophy and microvascular ischemia, but no overt lesions. I don't know if the patient has had a small stroke versus a TIA , but I don't think he has indications or meets criteria for having thrombolytic administration. I believe the risk reward ratio for this patient receiving thrombolytics is very poor and would not be advisable in his case. I called his private doctor, Dr. Will, who agreed to admit the patient to telemetry for observation and he will make a more definitive disposition tomorrow. 07/08/16 21:36 - Vital Signs Vital signs: Temp Pulse Resp BP Pulse Ox 97.8 F 73 22 H 129/81 H 94 07/08/16 20:50 07/08/16 19:25 07/08/16 21:01 07/08/16 21:01 07/08/16 21:01 - Laboratory Result Diagrams: 07/08/16 20:52 07/08/16 20:52 Laboratory results interpreted by me: 07/08/16 07/08/16 20:52 20:52 Hgb 12.2 L Hct 37.1 L RDW 15.4 H Chloride 108 H Glucose 149 H AST 13 L - Diagnostic Test Radiology reviewed: Image reviewed, Reports reviewed - CT scan of the brain shows atrophy and microvascular ischemia, but no acute findings. - EKG Interpretation by Nd EKG shows normal: Sinus rhythm Rate: Normal Rhythm: NSR Additional EKG results interpreted by ia: 07/08/16 20:[address] changes but no acute changes. No change from previous EKG done here in late April. 07/08/16 20:30 CT scan shows no acute findings. Discharge - Discharge Clinical Impression: TIA (transient ischemic attack) Qualifiers: Transient cerebral ischemia type: unspecified Qualified Code(s): G45.9 - Transient cerebral ischemic attack, unspecified Condition: Stable Disposition: ADMITTED OBSERVATION Admitting Provider: [facility] Unit Admitted: Telemetry
[2016-07-08 21:04] LABS: ABSOLUTE BASOPHILS # (AUTO) 0.1 10^3/uL (0.0-0.2); ABSOLUTE EOSINOPHILS # (AUTO) 0.2 10^3/uL (0.0-0.6); ABSOLUTE LYMPHOCYTES (AUTO) 2.4 10^3/uL (0.5-4.7); ABSOLUTE MONOCYTES (AUTO) 0.6 10^3/uL (0.1-1.4); ABSOLUTE NEUT (AUTO) 2.9 10^3/uL (1.7-8.2); BASOPHILS % (AUTO) 0.9 % (0-2); EOSINOPHILS % (AUTO) 3.4 % (0-6); HEMATOCRIT 37.1 % (37.9-51.0); HEMOGLOBIN 12.2 g/dL (13.5-17.0); HGB HCT DIFFERENCE -0.5; LYMPHOCYTES % (AUTO) 38.4 % (13-45); MEAN CORPUSCULAR HEMOGLOBIN 27.8 pg (27.0-33.4); MEAN CORPUSCULAR HGB CONC 32.9 g/dL (32.0-36.0); MEAN CORPUSCULAR VOLUME 85 fl (80-97); MONOCYTES % (AUTO) 10.2 % (3-13); RED BLOOD COUNT 4.39 10^6/uL (4.35-5.55); RED CELL DISTRIBUTION WIDTH 15.4 % (11.5-14.0); SEGMENTED NEUTROPHILS % (AUTO) 47.1 % (42-78); WHITE BLOOD COUNT 6.1 10^3/uL (4.0-10.5)
[2016-07-08 21:15] LABS: ALANINE AMINOTRANSFERASE 30 U/L (21-72); ALBUMIN 3.9 g/dL (3.5-5.0); ALKALINE PHOSPHATASE 99 U/L (38-126); ANION GAP 13 (5-19); ASPARTATE AMINO TRANSFERASE 13 U/L (17-59); BILIRUBIN,DIRECT 0.1 mg/dL (0.0-0.4); BILIRUBIN,TOTAL 0.4 mg/dL (0.2-1.3); BLOOD UREA NITROGEN 18 mg/dL (7-20); CALCIUM 9.2 mg/dL (8.4-10.2); CARBON DIOXIDE 23 mmol/L (22-30); CHLORIDE 108 mmol/L (98-107); CREATININE RESULT 1.05 mg/dL (0.52-1.25); GLUCOSE 149 mg/dL (75-110); POTASSIUM 3.8 mmol/L (3.6-5.0); SODIUM 144.3 mmol/L (137-145); TOTAL PROTEIN 6.9 g/dL (6.3-8.2)
--- NOTE | 2016-07-09 07:53 | EKG REPORT ---
SEVERITY:- ABNORMAL ECG - SINUS RHYTHM NONSPECIFIC T ABNORMALITIES, ANT-LAT LEADS : Confirmed by: Garett Escobar MD 09-Jul-2016 07:52:35
[2016-07-09 08:07] LABS: HEMOGLOBIN 12.8 g/dL (13.5-17.0); HGB HCT DIFFERENCE -0.6; MEAN CORPUSCULAR HEMOGLOBIN 27.7 pg (27.0-33.4); MEAN CORPUSCULAR HGB CONC 32.8 g/dL (32.0-36.0); MEAN CORPUSCULAR VOLUME 85 fl (80-97); RED BLOOD COUNT 4.62 10^6/uL (4.35-5.55); RED CELL DISTRIBUTION WIDTH 14.9 % (11.5-14.0); WHITE BLOOD COUNT 5.3 10^3/uL (4.0-10.5)
[2016-07-09 08:31] LABS: CHOLESTEROL 132.87 mg/dL (0-200); Direct HDL 38 mg/dL (>40); TRIGLYCERIDES 144 mg/dL (<150)
[2016-07-09 08:41] LABS: DIRECT LDL 57 mg/dL (<100)
[2016-07-09] MEDS ORDERED: METOPROLOL TARTRATE 50 MG TABLET PO SCH (10:00)
[2016-07-09] MEDS ORDERED: AMLODIPINE BESYLATE 10 MG TABLET PO SCH (10:00)
[2016-07-09] MEDS ORDERED: LANSOPRAZOLE 30 MG TAB.RAP.DR PO SCH (10:00)
[2016-07-09] MEDS ORDERED: CLOPIDOGREL BISULFATE 75 MG TABLET PO SCH (10:00)
[2016-07-09] MEDS ORDERED: ASPIRIN 81 MG TABLET, CHEWABLE PO SCH (10:00)
[2016-07-09] MEDS: GLYCOPYRROLATE 1 MG TABLET PO SCH ×3 (10:21→17:15)
[2016-07-09] MEDS ORDERED: ENOXAPARIN SODIUM INJ 40 MG/0.4 ML DISP.SYRIN SUBCUT ONE (18:45)
[2016-07-09 19:08] VITALS: BP 132/82
--- NOTE | 2016-07-09 19:30 | PDOC H&P ---
History of Present Illness Admission Date/PCP: 07/08/16 21:47 JOSEPHINE BUCK MD History of Present Illness: JANIE STORM is a 60 year old male, he came to the emergency room because of 1 day history of tingling sensation involving the left side of his body, and emergency room he was evaluated, because of history of CVA ER physician wanted him admitted for observation, MRI of the brain was done showed multiple old infarcts in the right inferior cerebellar hemisphere, right lateral mid to the central on the leftward abdias no evidence of acute infarction, this is more consistent with neuropathy. Past Medical History Cardiac Medical History: Reports: Coronary Artery Disease, Hyperlipidema, Hypertension Pulmonary Medical History: Reports: Chronic Obstructive Pulmonary Disease (COPD) Neurological Medical History: Reports: Ischemic CVA GI Medical History: Reports: Gastroesophageal Reflux Disease Psychiatric Medical History: Reports: Depression Past Surgical History Past Surgical History: Reports: Coronary Stent Social History Smoking Status: Former Smoker Frequency of Alcohol Use: None Hx Recreational Drug Use: No Drugs: None Hx Prescription Drug Abuse: No Family History Family History: Reviewed & Not Pertinent Parental Family History Reviewed: Yes Children Family History Reviewed: Yes Sibling(s) Family History Reviewed.: Yes Medication/Allergy Home Medications: Amlodipine Besylate [Norvasc 10 mg Tablet] 10 mg PO DAILY 07/09/16 Atorvastatin Calcium [Lipitor 80 mg Tablet] 80 mg PO DAILY 07/09/16 Clopidogrel Bisulfate [Plavix 75 mg Tablet] 75 mg PO DAILY 07/09/16 Gabapentin 600 mg PO Q8H #90 tablet 07/09/16 Glycopyrrolate [Robinul Forte 1 mg Tablet] 1 mg PO TID 07/09/16 Losartan Potassium [Cozaar 100 mg Tablet] 100 mg PO DAILY 07/09/16 Lubiprostone [Amitiza 24 Mcg Capsule] 24 mcg PO BIDBS 07/09/16 Metoprolol Tartrate [Lopressor 50 mg Tablet] 50 mg PO BIDBS 07/09/16 Omeprazole 40 mg PO DAILY 07/09/16 Allergies/Adverse Reactions: No Known Allergies Allergy (Verified 05/04/16 17:47) Review of Systems Constitutional: ABSENT: chills, fever(s), headache(s), weight gain, weight loss Eyes: ABSENT: visual disturbances Ears: ABSENT: hearing changes Cardiovascular: ABSENT: chest pain, dyspnea on exertion, edema, orthropnea, palpitations Respiratory: ABSENT: cough, hemoptysis Gastrointestinal: ABSENT: abdominal pain, constipation, diarrhea, hematemesis, hematochezia, nausea, vomiting Genitourinary: ABSENT: dysuria, hematuria Musculoskeletal: ABSENT: joint swelling Integumentary: ABSENT: rash, wounds Neurological: PRESENT: tingling - Of left side of the body Psychiatric: ABSENT: anxiety, depression, homidical ideation, suicidal ideation Endocrine: ABSENT: cold intolerance, heat intolerance, menstrual abnormalities, polydipsia, polyuria Hematologic/Lymphatic: ABSENT: easy bleeding, easy bruising, lymphadenopathy Physical Exam Vital Signs: Temp Pulse Resp BP Pulse Ox 97.6 F 63 16 132/82 H 98 07/09/16 19:06 07/09/16 19:06 07/09/16 19:06 07/09/16 19:06 07/09/16 19:06 Intake & Output 07/08/16 07/09/16 07/10/16 06:59 06:59 06:59 Intake Total 5 343 Output Total 950 875 Balance -945 -532 Weight 103.6 kg General appearance: PRESENT: no acute distress, well-developed, well-nourished Head exam: PRESENT: atraumatic, normocephalic Eye exam: PRESENT: conjunctiva pink, EOMI, PERRLA. ABSENT: scleral icterus Ear exam: PRESENT: normal external ear exam Mouth exam: PRESENT: moist, tongue midline Neck exam: PRESENT: full ROM. ABSENT: carotid bruit, JVD, lymphadenopathy, thyromegaly Cardiovascular exam: PRESENT: RRR, +S1, +S2 Vascular exam: PRESENT: normal capillary refill GI/Abdominal exam: PRESENT: normal bowel sounds, soft Rectal exam: PRESENT: deferred Neurological exam: PRESENT: alert, other - Right-sided hemiplegia Psychiatric exam: PRESENT: appropriate affect, normal mood Skin exam: PRESENT: dry, intact, warm Results Laboratory Results: 07/09/16 08:00 07/09/16 07/09/16 08:00 08:00 WBC 5.3 RBC 4.62 Hgb 12.8 L Hct 39.0 MCV 85 MCH 27.7 MCHC 32.8 RDW 14.9 H Plt Count 181 Triglycerides 144 Cholesterol 132.87 LDL Cholesterol Direct 57 VLDL Cholesterol 29.0 HDL Cholesterol 38 L Impressions: Head CT 05/01/17 19:24 IMPRESSION: MILD CHRONIC CHANGES OF ATROPHY AND MICROVASCULAR ISCHEMIA. NO ACUTE PROCESS. Head MRI 07/09/16 08:00 IMPRESSION: No acute findings. Multiple old nonhemorrhagic infarcts Assessment & Plan - Diagnosis (1) Peripheral sensory neuropathy Is this a current diagnosis for this admission?: YesPlan: He has peripheral neuropathy probably related to the right inferior cerebellar infarct which is old (2) Secondary peripheral neuropathy Is this a current diagnosis for this admission?: Yes (4) History of CVA (cerebrovascular accident) Is this a current diagnosis for this admission?: Yes
--- NOTE | 2016-07-09 19:34 | PDOC DISCHARGE SUMMARY ---
General - Admit/Disc Date/PCP Admission Date/Primary Care Provider: 07/08/16 21:47 JOSEPHINE BUCK MD Discharge Date: 07/09/16 - Discharge Diagnosis (1) Peripheral sensory neuropathy Is this a current diagnosis for this admission?: Yes (2) Secondary peripheral neuropathy Is this a current diagnosis for this admission?: Yes (4) History of CVA (cerebrovascular accident) Is this a current diagnosis for this admission?: Yes - Additional Information Discharge Diet: Regular Discharge Activity: Activity As Tolerated Home Medications: Amlodipine Besylate [Norvasc 10 mg Tablet] 10 mg PO DAILY 07/09/16 Atorvastatin Calcium [Lipitor 80 mg Tablet] 80 mg PO DAILY 07/09/16 Clopidogrel Bisulfate [Plavix 75 mg Tablet] 75 mg PO DAILY 07/09/16 Gabapentin 600 mg PO Q8H #90 tablet 07/09/16 Glycopyrrolate [Robinul Forte 1 mg Tablet] 1 mg PO TID 07/09/16 Losartan Potassium [Cozaar 100 mg Tablet] 100 mg PO DAILY 07/09/16 Lubiprostone [Amitiza 24 Mcg Capsule] 24 mcg PO BIDBS 07/09/16 Metoprolol Tartrate [Lopressor 50 mg Tablet] 50 mg PO BIDBS 07/09/16 Omeprazole 40 mg PO DAILY 07/09/16 History of Present Illness History of Present Illness: JANIE STORM is a 60 year old male, he came to the emergency room because of 1 day history of tingling sensation involving the left side of his body, and emergency room he was evaluated, because of history of CVA ER physician wanted him admitted for observation, MRI of the brain was done showed multiple old infarcts in the right inferior cerebellar hemisphere, right lateral mid to the central on the leftward abdias no evidence of acute infarction, this is more consistent with neuropathy. Hospital Course Hospital Course: He was admitted for observation, there was no acute illness identified he has tingling sensation on the left side of his body, most likely related to the old stroke. MRI brain showed multiple chronic appearing infarcts in the left lateral thalamus/posterior limb. bilateral caudate nuclei, bifrontal biparietal white matter also found was multiple old infarct in the right inferior cerebellar hemisphere, right lateral medulla Physical Exam Vital Signs: Temp Pulse Resp BP Pulse Ox 97.6 F 63 16 132/82 H 98 07/09/16 19:06 07/09/16 19:06 07/09/16 19:06 07/09/16 19:06 07/09/16 19:06 Intake & Output 07/08/16 07/09/16 07/10/16 06:59 06:59 06:59 Intake Total 5 343 Output Total 950 875 Balance -945 -532 Weight 103.6 kg General appearance: PRESENT: no acute distress Eye exam: PRESENT: PERRLA Respiratory exam: PRESENT: clear to auscultation jose luis Cardiovascular exam: PRESENT: +S1, +S2 GI/Abdominal exam: PRESENT: soft Neurological exam: PRESENT: alert, other - Right sided hemiplegia Results Laboratory Results: 07/09/16 08:00 07/09/16 07/09/16 08:00 08:00 WBC 5.3 RBC 4.62 Hgb 12.8 L Hct 39.0 MCV 85 MCH 27.7 MCHC 32.8 RDW 14.9 H Plt Count 181 Triglycerides 144 Cholesterol 132.87 LDL Cholesterol Direct 57 VLDL Cholesterol 29.0 HDL Cholesterol 38 L Impressions: Head CT 07/08/16 19:24 IMPRESSION: MILD CHRONIC CHANGES OF ATROPHY AND MICROVASCULAR ISCHEMIA. NO ACUTE PROCESS. Head MRI 07/09/16 08:00 IMPRESSION: No acute findings. Multiple old nonhemorrhagic infarcts
[2016-07-09] MEDS ORDERED: ATORVASTATIN CALCIUM 80 MG TABLET PO SCH (22:00)
== END 2016-07-09 20:15 | disposition home or self-care (01) ==
LOC: ER 19:10 → EH 21:47 → 3W 07-09 04:20
PROVIDERS: ADMIT Internal Medicine; ATTEND Internal Medicine
DX: G60.8 Other hereditary and idiopathic neuropathies (principal); G62.89 Other specified polyneuropathies; K21.9 Gastro-esophageal reflux disease without esophagitis; I69.328 Other speech and language deficits following cerebral infarction; I69.351 Hemiplegia and hemiparesis following cerebral infarction affecting right dominant side; I25.10 Atherosclerotic heart disease of native coronary artery without angina pectoris; I10 Essential (primary) hypertension; E78.5 Hyperlipidemia, unspecified; Z95.5 Presence of coronary angioplasty implant and graft; Z87.891 Personal history of nicotine dependence; Z79.02 Long term (current) use of antithrombotics/antiplatelets; Z79.899 Other long term (current) drug therapy
CPT/HCPCS: 93005; 99285; 36415 ×2; 85025; 85027; 80053; 80061; 70551; 70450; 93010; 97163; 92610; 92523; 97167; G0378; J3490 ×3; J1650

== ENCOUNTER → 2017-06-05 | Outpatient (CLI) | payer MEDICAID ==
--- NOTE | 2017-06-05 14:33 | RADIOLOGY REPORT (SQ) ---
EXAM DESCRIPTION: CT ABD/PELVIS WITH IV ONLY COMPLETED DATE/TIME: 06/05/2017 2:03 pm REASON FOR STUDY: GENERALIZED ABD PAIN (R10.84) F17.210 NICOTINE DEPENDENCE, CIGARETTES, UNCOMPLICA VERA R10.84 GENERALIZED ABDOMINAL PAIN COMPARISON: 05/04/2016 TECHNIQUE: CT scan of the abdomen and pelvis performed using helical scanning technique with dynamic intravenous contrast injection. No oral contrast. Images reviewed with lung, soft tissue, and bone windows. Reconstructed coronal and sagittal MPR images reviewed. Delayed images for evaluation of the urinary system also acquired. All images stored on PACS. All CT scanners at this facility use dose modulation, iterative reconstruction, and/or weight based d osing when appropriate to reduce radiation dose to as low as reasonably achievable (ALARA). [facility]: Dose Right [facility]: CareDose [facility]: Dose Right [facility]: Teradose 4D [facility]: [employer] CONTRAST TYPE AND DOSE: contrast/concentration: Isovue 370.00 mg/ml; Total Contrast Delivered: 100.0 ml; Total Saline Delivered: 72.0 ml RENAL FUNCTION: Creatinine 1.0 RADIATION DOSE: CT Rad equipment meets quality standard of care and radiation dose reduction techniq ues were employed. CTDIvol: 25.6 - 27.7 mGy. DLP: 2753 mGy-cm.. LIMITATIONS: Positioning. FINDINGS: LOWER CHEST: Cardiomegaly. LIVER: Normal size. No masses. No dilated ducts. SPLEEN: Normal size. No focal lesions. PANCREAS: No masses. No significant calcifications. No adjacent inflammation or peripancreatic fluid collections. Pancreatic duct not dilated. GALLBLADDER: No identified stones by CT criteria. No inflammatory changes to suggest cholecystitis. ADRENAL GLANDS: No significant masses or asymmetry. RIGHT KIDNEY AND URETER: No solid masses. No significant calcifications. No hydronephrosis or hyd roureter. LEFT KIDNEY AND URETER: No solid masses. No significant calcifications. No hydronephrosis or hydr oureter. AORTA AND VESSELS: No aneurysm. No dissection. Renal arteries, SMA, celiac without stenosis. RETROPERITONEUM: No retroperitoneal adenopathy, hemorrhage or masses. BOWEL AND PERITONEAL CAVITY: No masses or inflammatory changes. No free fluid or peritoneal masses. APPENDIX: Normal. PELVIS: No mass. No free fluid. Normal bladder. ABDOMINAL WALL: Anterior abdominal wall hernia containing fat. BONES: No significant or acute findings. OTHER: No other significant finding. IMPRESSION: No acute abnormality in the abdomen or pelvis. TECHNICAL DOCUMENTATION: JOB ID: [id number] Quality ID # [id number]: Final reports with documentation of one or more dose reduction techniques (e.g., Au tomated exposure control, adjustment of the mA and/or kV according to patient size, use of iterative reconstruction technique) 2010 [employer]- All Rights Reserved Reading location - IP/workstation name: [email or web address]
== END ==
LOC: RAD 13:18
PROVIDERS: ATTEND Internal Medicine
DX: R10.84 Generalized abdominal pain (principal); F17.210 Nicotine dependence, cigarettes, uncomplicated
CPT/HCPCS: 74177; 82565

== ENCOUNTER 2017-07-27 15:05 | Emergency (ER) | payer MEDICAID ==
[2017-07-27] MEDS ORDERED: ONDANSETRON 4 MG TAB.RAPDIS PO ONE (15:49)
--- NOTE | 2017-07-27 15:50 | ER Document Report ---
ED General - General Chief Complaint: Abdominal Pain Stated Complaint: ABDOMINAL PAIN Time Seen by Provider: 07/27/17 15:49 Mode of Arrival: Ambulatory Information source: Patient Notes: This is a 61-year-old man with a history of CVA (right side paresis, ambulates with a cane) who presents to the emergency room with nausea, vomiting, diarrhea and diffuse abdominal pain for the past 3 days. TRAVEL OUTSIDE OF THE [place] IN LAST 30 DAYS: No - Related Data Allergies/Adverse Reactions: No Known Allergies Allergy (Verified 07/27/17 15:06) Past Medical History - Social History Smoking Status: Former Smoker Chew tobacco use (# tins/day): No Frequency of alcohol use: None Drug Abuse: None Family History: Reviewed & Not Pertinent Patient has suicidal ideation: No Patient has homicidal ideation: No - Past Medical History Cardiac Medical History: Reports: Hx Coronary Artery Disease, Hx Hypercholesterolemia, Hx Hypertension Pulmonary Medical History: Reports: Hx COPD Neurological Medical History: Reports: Hx Cerebrovascular Accident. Denies: Hx Seizures Endocrine Medical History: Denies: Hx Diabetes Mellitus Type 1, Hx Diabetes Mellitus Type 2 Renal/ Medical History: Denies: Hx Peritoneal Dialysis GI Medical History: Reports: Hx Gastroesophageal Reflux Disease Psychiatric Medical History: Reports: Hx Depression Past Surgical History: Reports: Hx Cardiac Surgery, Hx Coronary Stent - Immunizations Hx Diphtheria, Pertussis, Tetanus Vaccination: Yes Physical Exam - Vital signs Vitals: Temp Pulse Resp BP Pulse Ox 98.5 F 63 18 119/65 98 07/27/17 15:12 07/27/17 15:12 07/27/17 15:12 07/27/17 15:12 07/27/17 15:12 Course - Vital Signs Vital signs: Temp Pulse Resp BP Pulse Ox 98.5 F 63 18 119/65 98 07/27/17 15:12 07/27/17 15:12 07/27/17 15:12 07/27/17 15:12 07/27/17 15:12
[2017-07-27 16:16] LABS: ABSOLUTE EOSINOPHILS # (AUTO) 0.1 10^3/uL (0.0-0.6); ABSOLUTE LYMPHOCYTES (AUTO) 1.1 10^3/uL (0.5-4.7); ABSOLUTE MONOCYTES (AUTO) 0.4 10^3/uL (0.1-1.4); ABSOLUTE NEUT (AUTO) 5.6 10^3/uL (1.7-8.2); BASOPHILS % (AUTO) 0.6 % (0-2); EOSINOPHILS % (AUTO) 1.7 % (0-6); HEMATOCRIT 41.3 % (37.9-51.0); HEMOGLOBIN 13.8 g/dL (13.5-17.0); LYMPHOCYTES % (AUTO) 15.2 % (13-45); MEAN CORPUSCULAR HEMOGLOBIN 28.1 pg (27.0-33.4); MEAN CORPUSCULAR HGB CONC 33.4 g/dL (32.0-36.0); MEAN CORPUSCULAR VOLUME 84 fl (80-97); MONOCYTES % (AUTO) 5.6 % (3-13); PLATELET COUNT 226 10^3/uL (150-450); RED BLOOD COUNT 4.91 10^6/uL (4.35-5.55); RED CELL DISTRIBUTION WIDTH 15.2 % (11.5-14.0); SEGMENTED NEUTROPHILS % (AUTO) 76.9 % (42-78); TOTAL CELLS COUNTED % (AUTO) 100 %; WHITE BLOOD COUNT 7.3 10^3/uL (4.0-10.5)
[2017-07-27 16:34] LABS: ALANINE AMINOTRANSFERASE 31 U/L (21-72); ALBUMIN 4.5 g/dL (3.5-5.0); ALKALINE PHOSPHATASE 119 U/L (38-126); ANION GAP 13 (5-19); ASPARTATE AMINO TRANSFERASE 18 U/L (17-59); BILIRUBIN,DIRECT 0.3 mg/dL (0.0-0.4); BILIRUBIN,TOTAL 0.5 mg/dL (0.2-1.3); BLOOD UREA NITROGEN 10 mg/dL (7-20); CALCIUM 9.7 mg/dL (8.4-10.2); CARBON DIOXIDE 29 mmol/L (22-30); CHLORIDE 103 mmol/L (98-107); GLUCOSE 235 mg/dL (75-110); POTASSIUM 3.4 mmol/L (3.6-5.0); SODIUM 144.7 mmol/L (137-145); TOTAL PROTEIN 8.4 g/dL (6.3-8.2)
[2017-07-27 17:47] LABS: APPEARANCE,URINE CLEAR; BILIRUBIN,URINE NEGATIVE (NEGATIVE); COLOR,URINE YELLOW; GLUCOSE, URINE >=500 mg/dL (NEGATIVE); KETONES,URINE NEGATIVE (NEGATIVE); LEUKOCYTE ESTERASE,URINE NEGATIVE (NEGATIVE); NITRITE,URINE NEGATIVE (NEGATIVE); PROTEIN,URINE 30 mg/dL (NEGATIVE); URINE SPECIFIC GRAVITY 1.018; UROBILINOGEN,URINE NEGATIVE mg/dL (<2.0)
--- NOTE | 2017-07-27 18:07 | RADIOLOGY REPORT (SQ) ---
EXAM DESCRIPTION: CT ABD/PELVIS WITH IV ONLY COMPLETED DATE/TIME: 07/27/2017 5:56 pm REASON FOR STUDY: generalized abd pain COMPARISON: 06/05/2017 TECHNIQUE: CT scan of the abdomen and pelvis performed using helical scanning technique with dynamic intravenous contrast injection. No oral contrast. Images reviewed with lung, soft tissue, and bone windows. Reconstructed coronal and sagittal MPR images reviewed. Delayed images for evaluation of the urinary system also acquired. All images stored on PACS. All CT scanners at this facility use dose modulation, iterative reconstruction, and/or weight based d osing when appropriate to reduce radiation dose to as low as reasonably achievable (ALARA). [facility]: Dose Right [facility]: CareDose [facility]: Dose Right [facility]: Teradose 4D [facility]: [place] CONTRAST TYPE AND DOSE: contrast/concentration: Isovue 370.00 mg/ml; Total Contrast Delivered: 99.0 ml; Total Saline Delivered: 69.0 ml RENAL FUNCTION: GFR > 60. RADIATION DOSE: CT Rad equipment meets quality standard of care and radiation dose reduction techniq ues were employed. CTDIvol: 21.1 - 27.0 mGy. DLP: 2587 mGy-cm.. LIMITATIONS: None. FINDINGS: LOWER CHEST: No significant findings. No nodules or infiltrates. LIVER: Normal size. No masses. No dilated ducts. SPLEEN: Normal size. No focal lesions. PANCREAS: No masses. No significant calcifications. No adjacent inflammation or peripancreatic fluid collections. Pancreatic duct not dilated. GALLBLADDER: No identified stones by CT criteria. No inflammatory changes to suggest cholecystitis. ADRENAL GLANDS: No significant masses or asymmetry. RIGHT KIDNEY AND URETER: No solid masses. No significant calcifications. No hydronephrosis or hyd roureter. LEFT KIDNEY AND URETER: No solid masses. No significant calcifications. No hydronephrosis or hydr oureter. AORTA AND VESSELS: No aneurysm. No dissection. Renal arteries, SMA, celiac without stenosis. RETROPERITONEUM: No retroperitoneal adenopathy, hemorrhage or masses. BOWEL AND PERITONEAL CAVITY: No masses or inflammatory changes. No free fluid or peritoneal masses. APPENDIX: Normal. PELVIS: No mass. No free fluid. Mcdonald catheter in the bladder. ABDOMINAL WALL: No masses. No hernias. BONES: No acute findings. OTHER: No other significant finding. IMPRESSION: NO ACUTE FINDING IN THE ABDOMEN OR PELVIS ON CT SCAN WITH IV CONTRAST. TECHNICAL DOCUMENTATION: JOB ID: [id number] Quality ID # [id number]: Final reports with documentation of one or more dose reduction techniques (e.g., Au tomated exposure control, adjustment of the mA and/or kV according to patient size, use of iterative reconstruction technique) 2010 [employer]- All Rights Reserved Reading location - IP/workstation name: [email or web address]
[2017-07-27 18:33] VITALS: BP 122/83
--- NOTE | 2017-07-27 18:36 | ER Document Report ---
ED General - General Chief Complaint: Abdominal Pain Stated Complaint: ABDOMINAL PAIN Time Seen by Provider: 07/27/17 15:49 Mode of Arrival: Ambulatory Information source: Patient Notes: 61-year-old male presents with complaints of generalized abdominal pain over the past week. Patient notes his cramping sensation associated with diarrhea. He denies any fevers or chills notes he has had some difficulty urinating as well. TRAVEL OUTSIDE OF THE [place] IN LAST 30 DAYS: No - HPI Onset: Last week Onset/Duration: Persistent Quality of pain: Cramping Severity: Mild Pain Level: 1 Associated symptoms: Diarrhea, Vomiting Exacerbated by: Denies Relieved by: Denies Similar symptoms previously: Yes Recently seen / treated by doctor: Yes - Patient seen by primary care physician regarding the same pain the past wee - Related Data Allergies/Adverse Reactions: No Known Allergies Allergy (Verified 07/27/17 15:06) Past Medical History - General Information source: Patient - Social History Smoking Status: Former Smoker Cigarette use (# per day): No Chew tobacco use (# tins/day): No Smoking Education Provided: No Frequency of alcohol use: None Drug Abuse: None Family History: Reviewed & Not Pertinent Patient has suicidal ideation: No Patient has homicidal ideation: No - Past Medical History Cardiac Medical History: Reports: Hx Coronary Artery Disease, Hx Hypercholesterolemia, Hx Hypertension Pulmonary Medical History: Reports: Hx COPD Neurological Medical History: Reports: Hx Cerebrovascular Accident. Denies: Hx Seizures Endocrine Medical History: Denies: Hx Diabetes Mellitus Type 1, Hx Diabetes Mellitus Type 2 Renal/ Medical History: Denies: Hx Peritoneal Dialysis GI Medical History: Reports: Hx Gastroesophageal Reflux Disease Psychiatric Medical History: Reports: Hx Depression Past Surgical History: Reports: Hx Cardiac Surgery, Hx Coronary Stent - Immunizations Hx Diphtheria, Pertussis, Tetanus Vaccination: Yes Review of Systems - Review of Systems Notes: REVIEW OF SYSTEMS: CONSTITUTIONAL : Denies fever, chills, or sweats. Denies recent illness. EENT: Denies eye, ear, throat, or mouth pain or symptoms. Denies nasal or sinus congestion or discharge. Denies throat, tongue, or mouth swelling or difficulty swallowing. CARDIOVASCULAR: Denies chest pain. Denies palpitations or racing or irregular heart beat. Denies ankle edema. RESPIRATORY: Denies cough, cold, or chest congestion. Denies shortness of breath, difficulty breathing, or wheezing. GASTROINTESTINAL: Admits to abdominal pain diarrhea nausea GENITOURINARY: Denies difficulty urinating, painful urination, burning, frequency, blood in urine, or discharge. MUSCULOSKELETAL: Denies back or neck pain or stiffness. Denies joint pain or swelling. SKIN: Denies rash, lesions or sores. HEMATOLOGIC : Denies easy bruising or bleeding. LYMPHATIC: Denies swollen, enlarged glands. NEUROLOGICAL: Denies confusion or altered mental status. Denies passing out or loss of consciousness. Denies dizziness or lightheadedness. Denies headache. Denies weakness or paralysis or loss of use of either side. Denies problems with gait or speech. Denies sensory loss, numbness, or tingling. Denies seizures. PSYCHIATRIC: Denies anxiety or stress. Denies depression, suicidal ideation, or homicidal ideation. ALL OTHER SYSTEMS REVIEWED AND NEGATIVE. Dictation was performed using [employer] voice recognition software PHYSICAL EXAMINATION: GENERAL: Well-appearing, well-nourished and in no acute distress. HEAD: Atraumatic, normocephalic. EYES: Pupils equal round and reactive to light, extraocular movements intact, sclera anicteric, conjunctiva are normal. ENT: Nares patent, oropharynx clear without exudates. Moist mucous membranes. NECK: Normal range of motion, supple without lymphadenopathy LUNGS: Breath sounds clear to auscultation bilaterally and equal. No wheezes rales or rhonchi. HEART: Regular rate and rhythm without murmurs ABDOMEN: Soft, generalized tenderness no rebound or guarding Musculoskeletal: Normal range of motion, no pitting or edema. No cyanosis. NEUROLOGICAL: Right-sided paralysis PSYCH: Normal mood, normal affect. SKIN: Warm, Dry, normal turgor, no rashes or lesions noted. Physical Exam - Vital signs Vitals: Temp Pulse Resp BP Pulse Ox 98.5 F 63 18 119/65 98 07/27/17 15:12 07/27/17 15:12 07/27/17 15:12 07/27/17 15:12 07/27/17 15:12 Course - Re-evaluation Re-evalutation: 07/27/17 18:33 Bedside ultrasound was performed no acute abnormalities were noted he was noted to have small amount of urine in his bladder, a Mcdonald was placed in a few 100 cc were obtained, patient has no signs of urinary retention, his urinalysis did note glucose blood sugar was 200s, no white count elevation was noted, therefore I did perform a CT abdomen pelvis with IV contrast and no significant abdominal I am unsure of the cause of patient's abdominal pain but does not appear to be life-threatening at this time vital signs are stable he looks well and is stable for discharge to follow-up with his primary care physician After performing a Medical Screening Examination, I estimate there is LOW risk for ACUTE APPENDICITIS, BOWEL OBSTRUCTION, ACUTE CHOLECYSTITIS, PERFORATED DIVERTICULITIS, INCARCERATED HERNIA, PANCREATITIS, TESTICULAR TORSION or PERFORATED ULCER, thus I consider the discharge disposition reasonable. Also, there is no evidence or peritonitis, sepsis, or toxicity. I have reevaluated this patient multiple times and no significant life threatening changes are noted. The patient and I have discussed the diagnosis and risks, and we agree with discharging home with close follow-up with the understanding that symptoms and presentations can change. We also discussed returning to the Emergency Department immediately if new or worsening symptoms occur. We have discussed the symptoms which are most concerning (e.g., bloody stool, fever, changing or worsening pain, intractable vomiting - standard verbal up date) that necessitate immediate return. - Vital Signs Vital signs: Temp Pulse Resp BP Pulse Ox 98.5 F 63 18 119/65 98 07/27/17 15:12 07/27/17 15:12 07/27/17 15:12 07/27/17 15:12 07/27/17 15:12 - Laboratory Result Diagrams: 07/27/17 16:01 07/27/17 16:01 Laboratory results interpreted by me: 07/27/17 07/27/17 07/27/17 16:01 16:01 17:29 RDW 15.2 H Potassium 3.4 L Glucose 235 H Total Protein 8.4 H Urine Protein 30 H Urine Glucose (UA) >=500 H Urine Blood SMALL H Discharge - Discharge Clinical Impression: Abdominal pain Qualifiers: Abdominal location: generalized Qualified Code(s): R10.84 - Generalized abdominal pain Condition: Stable Disposition: HOME, SELF-CARE Instructions: Abdominal Pain ([facility]) Prescriptions: Dicyclomine HCl [Bentyl 20 mg Tablet] 20 mg PO QID #40 tablet Referrals: JOSEPHINE BUCK MD [Primary Care Provider] - Follow up as needed
== END 2017-07-27 19:06 | disposition home or self-care (01) ==
LOC: ER 15:05
DX: R10.84 Generalized abdominal pain (principal); R19.7 Diarrhea, unspecified; Z87.891 Personal history of nicotine dependence; I25.10 Atherosclerotic heart disease of native coronary artery without angina pectoris; I10 Essential (primary) hypertension; J44.9 Chronic obstructive pulmonary disease, unspecified
CPT/HCPCS: 99284; 51701; 51702; 36415; 82962; 83690; 85025; 80053; 81001; 83036; 87493; 74177; S0119

== ENCOUNTER → 2018-04-28 | Outpatient (CLI) | payer BC ==
--- NOTE | 2018-04-28 15:45 | RADIOLOGY REPORT (SQ) ---
EXAM DESCRIPTION: SHOULDER RIGHT 2 OR MORE VIEWS COMPLETED DATE/TIME: 04/28/2018 3:07 pm REASON FOR STUDY: PAIN IN RT SHOULDER M25.511 PAIN IN RIGHT SHOULDER COMPARISON: None. NUMBER OF VIEWS: Three views. TECHNIQUE: Internal rotation, external rotation, and Y view images acquired of the right shoulder. LIMITATIONS: None. FINDINGS: MINERALIZATION: Normal. BONES: No acute fracture or dislocation. No worrisome bone lesions. JOINTS: No dislocation. VISUALIZED LUNGS AND RIBS: No pneumothorax. No rib fracture. SOFT TISSUES: No radiopaque foreign body. OTHER: No other significant finding. IMPRESSION: NEGATIVE STUDY OF THE RIGHT SHOULDER. NO RADIOGRAPHIC EVIDENCE OF ACUTE INJURY. TECHNICAL DOCUMENTATION: JOB ID: [id number] [employer]- All Rights Reserved Reading location - IP/workstation name: [email or web address]
== END ==
LOC: OD 14:39
PROVIDERS: ATTEND Internal Medicine
DX: M25.511 Pain in right shoulder (principal)

== ENCOUNTER 2019-03-10 16:58 | Emergency (ER) | payer OTHER, MEDICARE ==
[2019-03-10 19:24] LABS: ABSOLUTE EOSINOPHILS # (AUTO) 0.2 10^3/uL (0.0-0.6); ABSOLUTE LYMPHOCYTES (AUTO) 1.7 10^3/uL (0.5-4.7); ABSOLUTE MONOCYTES (AUTO) 0.5 10^3/uL (0.1-1.4); ABSOLUTE NEUT (AUTO) 3.7 10^3/uL (1.7-8.2); BASOPHILS % (AUTO) 0.7 % (0-2); EOSINOPHILS % (AUTO) 3.3 % (0-6); HEMATOCRIT 46.4 % (37.9-51.0); HEMOGLOBIN 14.9 g/dL (13.5-17.0); LYMPHOCYTES % (AUTO) 27.6 % (13-45); MEAN CORPUSCULAR HEMOGLOBIN 27.6 pg (27.0-33.4); MEAN CORPUSCULAR HGB CONC 32.1 g/dL (32.0-36.0); MEAN CORPUSCULAR VOLUME 86 fl (80-97); MONOCYTES % (AUTO) 8.4 % (3-13); PLATELET COUNT 202 10^3/uL (150-450); RED BLOOD COUNT 5.39 10^6/uL (4.35-5.55); RED CELL DISTRIBUTION WIDTH 17.8 % (11.5-14.0); TOTAL CELLS COUNTED % (AUTO) 100 %; WHITE BLOOD COUNT 6.2 10^3/uL (4.0-10.5)
[2019-03-10 19:31] LABS: ALBUMIN 4.3 g/dL (3.5-5.0); ALKALINE PHOSPHATASE 95 U/L (38-126); ANION GAP 13 (5-19); ASPARTATE AMINO TRANSFERASE 18 U/L (17-59); BILIRUBIN,DIRECT 0.3 mg/dL (0.0-0.4); BILIRUBIN,TOTAL 0.4 mg/dL (0.2-1.3); BLOOD UREA NITROGEN 17 mg/dL (7-20); CALCIUM 9.6 mg/dL (8.4-10.2); CARBON DIOXIDE 28 mmol/L (22-30); CHLORIDE 103 mmol/L (98-107); CREATINE KINASE 76 U/L (55-170); GLUCOSE 154 mg/dL (75-110); TOTAL PROTEIN 8.6 g/dL (6.3-8.2)
[2019-03-10 19:40] LABS: CREATINE KINASE MB 0.66 ng/mL (<4.55)
[2019-03-10 19:42] LABS: TROPONIN I < 0.012 ng/mL
[2019-03-10 20:19] LABS: APPEARANCE,URINE CLEAR; BILIRUBIN,URINE NEGATIVE (NEGATIVE); COLOR,URINE YELLOW; GLUCOSE, URINE >=500 mg/dL (NEGATIVE); KETONES,URINE NEGATIVE (NEGATIVE); LEUKOCYTE ESTERASE,URINE NEGATIVE (NEGATIVE); NITRITE,URINE NEGATIVE (NEGATIVE); PROTEIN,URINE 30 mg/dL (NEGATIVE); URINE SPECIFIC GRAVITY 1.033
--- NOTE | 2019-03-10 20:48 | ER Document Report ---
ED General - General Chief Complaint: Dizziness Stated Complaint: DIZZINESS Time Seen by Provider: 03/10/19 20:00 Primary Care Provider: JOSEPHINE BUCK MD [Primary Care Provider] - Follow up as needed TRAVEL OUTSIDE OF THE [place] IN LAST 30 DAYS: No - HPI Notes: 63-year-old male followed by Dr. Buck with history of prior CVA with persistent right hemiparesis now presenting with multiple complaints. This man walks with a quad cane at baseline. He says he intermittently feels lightheaded and he stumbled today but did not pass out. He did not actually fall or hurt himself. He denies headache. He denies any new focal weakness or focal sensory symptoms. He denies any visual changes or difficulty swallowing or speaking. Patient also says he is not had a bowel movement in 8 days. He has had some loss of appetite and his abdomen feels mildly distended. No vomiting. History of hypertension and diabetes. Patient says he is fully compliant with his medications. - Related Data Allergies/Adverse Reactions: No Known Allergies Allergy (Verified 07/27/17 15:06) Home Medications: omeprazole, Past Medical History - General Information source: Patient - Social History Smoking Status: Former Smoker Chew tobacco use (# tins/day): No Frequency of alcohol use: None Drug Abuse: None Family History: Reviewed & Not Pertinent Patient has suicidal ideation: No Patient has homicidal ideation: No - Past Medical History Cardiac Medical History: Reports: Hx Coronary Artery Disease, Hx Hypercholestero lemia, Hx Hypertension Pulmonary Medical History: Reports: Hx COPD Neurological Medical History: Reports: Hx Cerebrovascular Accident. Denies: Hx Seizures Endocrine Medical History: Denies: Hx Diabetes Mellitus Type 1, Hx Diabetes Mellitus Type 2 Renal/ Medical History: Denies: Hx Peritoneal Dialysis GI Medical History: Reports: Hx Gastroesophageal Reflux Disease Psychiatric Medical History: Reports: Hx Depression Past Surgical History: Reports: Hx Cardiac Surgery, Hx Coronary Stent - Immunizations Hx Diphtheria, Pertussis, Tetanus Vaccination: Yes Review of Systems - Review of Systems Notes: Constitutional: Negative for fever. HENT: Negative for sore throat. Eyes: Negative for visual changes. Cardiovascular: Negative for chest pain. Respiratory: Negative for shortness of breath. Gastrointestinal: As per HPI. Genitourinary: Negative for dysuria. Musculoskeletal: Negative for back pain. Skin: Negative for rash. Neurological: As per HPI. 10 point ROS negative except as marked above and in HPI. Physical Exam - Vital signs Vitals: Temp Pulse Resp BP Pulse Ox 98.5 F 90 22 H 157/99 H 90 L 03/10/19 16:58 03/10/19 16:58 03/10/19 16:58 03/10/19 16:58 03/10/19 16:58 - Notes Notes: GENERAL: Mildly obese male appearing approximately stated age in no acute distress. SKIN: Good turgor no rashes. HEAD: Normocephalic atraumatic. EYES: PERRLA. EOMI. Conjunctivae and sclerae clear. EARS: CANALS AND TMS CLEAR. NOSE: CLEAR. MOUTH: Moist mucosa. Good dentition. No stridor or edema. No drooling. NECK: Supple. No masses or thyromegaly. No adenopathy. Carotids 2+ without bruits. No JVD. BACK: Symmetrical without tenderness. CHEST: Respirations unlabored. Breath sounds clear and symmetrical. HEART: Regular rhythm. No murmur gallop or rub. ABDOMEN: Soft nontender without masses, organomegaly or rebound. Bowel sounds normally active. No bruits. GENITALIA: Deferred. EXTREMITIES: 2+ pretibial edema bilaterally. 1+ edema right hand. No calf tenderness. Cap refill less than 1.5 seconds. Dorsalis pedis and posterior tibial pulses 3+ and symmetrical. NEUROLOGICAL: GCS 15. Alert and oriented x3. Ambulatory with a quad cane fluent speech. Cranial nerves II through XII intact. Pre-existing neurologic deficits: Moderate right hemisensory deficit and 3/5 strength right upper and lower extremity.. PSYCHIATRIC: Appropriate affect. Course - Re-evaluation Re-evalutation: 03/10/19 22:[address] showed no acute changes. Three-way abdomen film showed large amount of retained stool. His blood sugar was about 150. His troponin is normal. No acute findings on his EKG. Urinalysis remarkable only for glycosuria. Primary problem at this time seems to be constipation and old deficits from prior CVA. We will give this man enemas and reevaluate with anticipated disposition of outpatient follow-up with primary care provider. 03/11/19 01:46 Good results of enemas and patient feels much better. Stable for discharge home. - Vital Signs Vital signs: Temp Pulse Resp BP Pulse Ox 98.4 F 90 20 148/114 H 90 L 03/11/19 01:26 03/10/19 16:58 03/11/19 01:26 03/11/19 01:26 03/11/19 01:26 - Laboratory Result Diagrams: 03/10/19 17:45 03/10/19 17:45 Laboratory results interpreted by me: 03/10/19 03/10/19 03/10/19 17:45 17:45 20:00 RDW 17.8 H Glucose 154 H Total Protein 8.6 H Urine Protein 30 H Urine Glucose (UA) >=500 H Urine Urobilinogen 2.0 H Urine Ascorbic Acid 20 H - Diagnostic Test Radiology reviewed: Reports reviewed Radiology results interpreted by me: 03/10/19 22:29 Large amount of retained stool on three-way abdomen per radiologist with no other acute findings. - EKG Interpretation by Me Additional EKG results interpreted by me: 03/10/19 20:48 Normal sinus rhythm. Rate 69. Normal axis. No acute ST/T wave changes. Discharge - Discharge Clinical Impression: Generalized weakness, History of CVA (cerebrovascular accident) Constipation Qualifiers: Constipation type: unspecified constipation type Qualified Code(s): K59.00 - C onstipation, unspecified Condition: Stable Disposition: HOME, SELF-CARE Additional Instructions: Take prescribed medication as instructed and stay on all of your other regular medications. See your doctor for follow-up within the next 3 to 5 days. Return here as needed for new or worsening symptoms: Pain that is worsening or unimproved Uncontrolled vomiting High fever or shaking chills Overall worsening Prescriptions: Polyethylene Glycol 3350 [Miralax] 1 cap PO DAILY #527 powder Referrals: JOSEPHINE BUCK MD [Primary Care Provider] - Follow up as needed
--- NOTE | 2019-03-10 21:40 | RADIOLOGY REPORT (SQ) ---
EXAM DESCRIPTION: XR ABDOMEN SUPINE AND ERECT WITH CHEST (ABD ACUTE SERIES) COMPLETED DATE/TME: 03/10/2019 20:41 CLINICAL HISTORY: 63 years, Male, dizziness COMPARISON: Prior study from 07/27/2017 NUMBER OF VIEWS: Four TECHNIQUE: Multiple frontal radiographs of the chest and abdomen were acquired LIMITATIONS: None. FINDINGS: Cardiac and mediastinal contours are stable. Lungs are clear. No pleural effusion or pneumothorax. Gas and a large amount of stool are noted throughout the large bowel. Scattered nondilated loops of small bowel are visible throughout the abdomen. There is no subdiaphragmatic free air. No suspicious soft tissue calcifications or osseous anomalies are appreciated. A few scattered phleboliths project over the pelvic inlet. IMPRESSION: No acute disease within the chest. Nonobstructive bowel gas pattern. Large colonic stool load. copyright 2010 [employer]- All Rights Reserved
--- NOTE | 2019-03-10 21:40 | RADIOLOGY REPORT (SQ) ---
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 COMPARISON: 05/04/2016 TECHNIQUE: CT scan of the brain without IV contrast. This exam was performed according to our departmental dose-optimization program, which includes automated exposure control, adjustment of the mA and/or kV according to patient size and/or use of iterative reconstruction technique. FINDINGS: There are scattered areas of hypoattenuation within the periventricular white matter, which likely represent chronic microvascular ischemia. There is an old lacunar infarct in the left basal ganglia. No evidence of acute infarction, intracranial hemorrhage, extra-axial fluid collection, or midline shift. No air-fluid levels are seen in the paranasal sinuses to suggest acute sinusitis. No depressed skull fracture. IMPRESSION: 1. No acute intracranial findings. 2. Senescent changes with chronic microvascular ischemia.
[2019-03-10] MEDS ORDERED: MINERAL OIL 30 ML UDCUP PR ONE (22:27)
[2019-03-11 01:29] VITALS: BP 148/114
--- NOTE | 2019-03-11 07:44 | EKG REPORT ---
SEVERITY:- BORDERLINE ECG - SINUS RHYTHM NONSPECIFIC ANTERIOR ST-T CHANGES UNCHANGED FROM 07/08/16 EKG : Confirmed by: Garett Escobar MD 11-Mar-2019 07:44:11
== END 2019-03-11 01:54 | disposition home or self-care (01) ==
LOC: ER 16:58
DX: R53.1 Weakness (principal); R42 Dizziness and giddiness; K59.00 Constipation, unspecified; I69.951 Hemiplegia and hemiparesis following unspecified cerebrovascular disease affecting right dominant side; I25.10 Atherosclerotic heart disease of native coronary artery without angina pectoris; E78.00 Pure hypercholesterolemia, unspecified; I10 Essential (primary) hypertension; J44.9 Chronic obstructive pulmonary disease, unspecified
CPT/HCPCS: 93005; 99284; 36415; 82553; 82550; 85025; 80053; 81001; 84484; 83880; 74022; 70450; 93010; J3490

== ENCOUNTER 2019-06-07 16:19 | Inpatient (IN) | payer MEDICARE ==
[2019-06-07 17:26] LABS: HEMATOCRIT 44.6 % (37.9-51.0); HEMOGLOBIN 14.5 g/dL (13.5-17.0); MEAN CORPUSCULAR HEMOGLOBIN 28.1 pg (27.0-33.4); MEAN CORPUSCULAR HGB CONC 32.5 g/dL (32.0-36.0); MEAN CORPUSCULAR VOLUME 87 fl (80-97); PLATELET COUNT 199 10^3/uL (150-450); RED BLOOD COUNT 5.16 10^6/uL (4.35-5.55); RED CELL DISTRIBUTION WIDTH 17.8 % (11.5-14.0); WHITE BLOOD COUNT 5.9 10^3/uL (4.0-10.5)
[2019-06-07 17:31] LABS: APPEARANCE,URINE CLEAR; BILIRUBIN,URINE NEGATIVE (NEGATIVE); COLOR,URINE YELLOW; GLUCOSE, URINE >=500 mg/dL (NEGATIVE); KETONES,URINE NEGATIVE (NEGATIVE); LEUKOCYTE ESTERASE,URINE NEGATIVE (NEGATIVE); NITRITE,URINE NEGATIVE (NEGATIVE); PROTEIN,URINE NEGATIVE (NEGATIVE); URINE SPECIFIC GRAVITY 1.026
[2019-06-07 17:43] LABS: ALBUMIN 4.3 g/dL (3.5-5.0); ALKALINE PHOSPHATASE 95 U/L (38-126); ANION GAP 9 (5-19); ASPARTATE AMINO TRANSFERASE 18 U/L (17-59); BILIRUBIN,TOTAL 0.4 mg/dL (0.2-1.3); BLOOD UREA NITROGEN 13 mg/dL (7-20); CALCIUM 9.2 mg/dL (8.4-10.2); CARBON DIOXIDE 25 mmol/L (22-30); CHLORIDE 106 mmol/L (98-107); GLUCOSE 141 mg/dL (75-110); POTASSIUM 4.2 mmol/L (3.6-5.0); TOTAL PROTEIN 8.1 g/dL (6.3-8.2)
[2019-06-07 18:08] LABS: UR PRO/CREAT RATIO RESULT 0.1 mg/mg (0.0-0.2); URINE CREATININE 95.9 mg/dL (22-328); URINE PROTEIN 13.3 mg/dL (<12)
[2019-06-07] MEDS ORDERED: NORMAL SALINE 250 ML with FUROSEMIDE 250 MG IV PRN ×2 (19:00)
--- NOTE | 2019-06-07 19:40 | RADIOLOGY REPORT (SQ) ---
EXAM DESCRIPTION: CHEST 2 VIEWS IMAGES COMPLETED DATE/TIME: 06/07/2019 7:22 pm REASON FOR STUDY: anasarca COMPARISON: 12/16/2015 EXAM PARAMETERS: NUMBER OF VIEWS: two views TECHNIQUE: Digital Frontal and Lateral radiographic views of the chest acquired. RADIATION DOSE: NA LIMITATIONS: none FINDINGS: LUNGS AND PLEURA: No opacities, masses or pneumothorax. No pleural effusion. MEDIASTINUM AND HILAR STRUCTURES: No masses or contour abnormalities. HEART AND VASCULAR STRUCTURES: Heart normal size. No evidence for failure. BONES: No acute findings. HARDWARE: None in the chest. OTHER: No other significant finding. IMPRESSION: NO ACUTE RADIOGRAPHIC FINDING IN THE CHEST. TECHNICAL DOCUMENTATION: JOB ID: [id number] 2010 [employer]- All Rights Reserved Reading location - IP/workstation name: [email or web address]
[2019-06-07] MEDS ORDERED: INSULIN GLARGINE,HUM.REC.ANLOG 1,000 UNIT/10 ML VIAL SUBCUT SCH (20:15)
[2019-06-07] MEDS ORDERED: (PENDING PHARMACY ID) (Losartan Potassium [Losartan Potassium] 100 MG) PO SCH (20:15)
[2019-06-07] MEDS ORDERED: (PENDING PHARMACY ID) (Linaclotide 145 MCG) PO SCH ×2 (20:15→21:00)
[2019-06-07] MEDS ORDERED: GLYCOPYRROLATE 1 MG TABLET PO SCH (20:15)
[2019-06-07] MEDS ORDERED: PLECANATIDE 3 MG PO SCH ×2 (20:15→21:00)
[2019-06-07] MEDS ORDERED: (PENDING PHARMACY ID) (Dapagliflozin Propanediol [Farxiga] 10 MG) PO SCH ×2 (20:15→21:00)
--- NOTE | 2019-06-07 20:41 | PDOC H&P ---
History of Present Illness Admission Date/PCP: 06/07/19 16:19 JOSEPHINE BUCK MD History of Present Illness: JANIE STORM is a 63 year old male, He has history of cerebral infarction with right-sided hemiplegia, type 2 diabetes mellitus, he came to the office for evaluation of severe bilateral lower extremity edema, there was also swelling of the upper extremities, it was difficult to discern the exact etiology of the anasarca syndrome the differential diagnosis includes, CHF, nephrotic syndrome, chronic liver disease but because the differential diagnosis is quite long I felt the best plan of care was to admit patient directly to the hospital for management. The B type natruretic peptide serum level was normal this essentially rule out CHF, the urine protein creatinine ratio is normal this essentially rule out nephrotic syndrome, the other potential etiology could be obesity ,inactivity ,medication Past Medical History Cardiac Medical History: Reports: Coronary Artery Disease, Hyperlipidema, Hypertension Pulmonary Medical History: Reports: Chronic Obstructive Pulmonary Disease (COPD) Endocrine Medical History: Reports: Diabetes Mellitus Type 2 GI Medical History: Reports: Gastroesophageal Reflux Disease Psychiatric Medical History: Reports: Depression Past Surgical History Past Surgical History: Reports: Coronary Stent Social History Smoking Status: Former Smoker Frequency of Alcohol Use: None Hx Recreational Drug Use: No Drugs: None Hx Prescription Drug Abuse: No Family History Family History: Reviewed & Not Pertinent Parental Family History Reviewed: Yes Children Family History Reviewed: Yes Sibling(s) Family History Reviewed.: Yes Medication/Allergy Home Medications: Amlodipine Besylate [Norvasc 10 mg Tablet] 10 mg PO DAILY 07/09/16 Glycopyrrolate [Robinul Forte 1 mg Tablet] 1 mg PO DAILY 07/09/16 Metoprolol Tartrate [Lopressor 50 mg Tablet] 50 mg PO BIDBS 07/09/16 Omeprazole 40 mg PO Q6AM 07/09/16 Aspirin [Aspirin EC] 81 mg PO DAILY 07/27/17 Atorvastatin Calcium [Lipitor 40 mg Tablet] 40 mg PO QHS 06/07/19 Dapagliflozin Propanediol [Farxiga] 10 mg PO DAILY 06/07/19 Glimepiride [Amaryl 4 mg Tablet] 4 mg PO DAILY 06/07/19 Insulin Glargine,Hum.rec.anlog [Lantus Insulin 100 Unit/1 ml 10 ml] 25 units SQ DAILY 06/07/19 Linaclotide [Linzess 145 Mcg Capsule] 145 mcg PO DAILY 06/07/19 Losartan Potassium 100 mg PO DAILY 06/07/19 Metformin HCl [Glucophage] 1,000 mg PO DAILY 06/07/19 Phentermine HCl [Adipex-P] 30 mg PO DAILY 06/07/19 Plecanatide [Trulance] 3 mg PO DAILY 06/07/19 Allergies/Adverse Reactions: No Known Allergies Allergy (Verified 07/27/17 15:06) Review of Systems Constitutional: ABSENT: chills, fever(s), headache(s), weight gain, weight loss Eyes: ABSENT: visual disturbances Ears: ABSENT: hearing changes Cardiovascular: PRESENT: edema. ABSENT: chest pain, dyspnea on exertion, orthropnea, palpitations Respiratory: ABSENT: cough, hemoptysis Gastrointestinal: PRESENT: constipation. ABSENT: abdominal pain, diarrhea, hematemesis, hematochezia, nausea, vomiting Genitourinary: ABSENT: dysuria, hematuria Musculoskeletal: ABSENT: joint swelling Integumentary: ABSENT: rash, wounds Neurological: ABSENT: abnormal gait, abnormal speech, confusion, dizziness, focal weakness, syncope Psychiatric: ABSENT: anxiety, depression, homidical ideation, suicidal ideation Endocrine: ABSENT: cold intolerance, heat intolerance, menstrual abnormalities, polydipsia, polyuria Hematologic/Lymphatic: ABSENT: easy bleeding, easy bruising, lymphadenopathy Physical Exam Vital Signs: Temp Pulse Resp BP Pulse Ox 98.7 F 110 H 18 130/93 H 91 L 06/07/19 16:58 06/07/19 16:58 06/07/19 16:58 06/07/19 16:58 06/07/19 16:58 Intake & Output 06/06/19 06/07/19 06/08/19 06:59 06:59 06:59 Intake Total 240 Output Total 350 Balance -110 Weight 129.9 kg General appearance: PRESENT: no acute distress, well-developed, well-nourished Head exam: PRESENT: atraumatic, normocephalic Eye exam: PRESENT: conjunctiva pink, EOMI, PERRLA Ear exam: PRESENT: normal external ear exam Mouth exam: PRESENT: moist, tongue midline Neck exam: PRESENT: full ROM Respiratory exam: PRESENT: clear to auscultation jose luis Cardiovascular exam: PRESENT: RRR, +S1, +S2 Pulses: PRESENT: normal dorsalis pedis pul, +2 pedal pulses bilateral Vascular exam: PRESENT: normal capillary refill GI/Abdominal exam: PRESENT: normal bowel sounds, soft Rectal exam: PRESENT: deferred Extremities exam: PRESENT: pedal edema Neurological exam: PRESENT: alert, CN II-XII grossly intact, motor sensory deficit Psychiatric exam: PRESENT: appropriate affect, normal mood Skin exam: PRESENT: dry, intact, warm Results Laboratory Results: 06/07/19 17:17 06/07/19 17:17 06/07/19 06/07/19 06/07/19 17:05 17:17 17:17 WBC 5.9 RBC 5.16 Hgb 14.5 Hct 44.6 MCV 87 MCH 28.1 MCHC 32.5 RDW 17.8 H Plt Count 199 Sodium 140.3 Potassium 4.2 Chloride 106 Carbon Dioxide 25 Anion Gap 9 BUN 13 Creatinine 0.88 Est GFR ( Amer) > 60 Glucose 141 H Calcium 9.2 Total Bilirubin 0.4 AST 18 Alkaline Phosphatase 95 Total Protein 8.1 Albumin 4.3 Urine Color YELLOW Urine Appearance CLEAR Urine pH 6.0 Ur Specific Mellott 1.026 Urine Protein NEGATIVE Urine Glucose (UA) >=500 H Urine Ketones NEGATIVE Urine Blood LARGE H Urine Nitrite NEGATIVE Ur Leukocyte Esterase NEGATIVE Urine WBC (Auto) 1 Urine RBC (Auto) 131 06/07/19 17:17 NT-Pro-B Natriuret Pep 13 Impressions: Chest X-Ray 06/07/19 00:00 IMPRESSION: NO ACUTE RADIOGRAPHIC FINDING IN THE CHEST. Assessment & Plan - Diagnosis (1) Anasarca Is this a current diagnosis for this admission?: Yes Plan: The differential diagnosis is quite long but he does not have CHF, there is no nephrotic syndrome, this is probably weight related, the BMI is 47 coupled with inactivity, because of his hemiplegia. Patient will be treated with Lasix infusion for symptom control (2) T2DM (type 2 diabetes mellitus) Qualifiers: Diabetes mellitus mcfp insulin use: with emt intermediate use Diabetes mellitus complication status: with neurologic complications Diabetes mellitus complication detail: with polyneuropathy Qualified Code(s): E11.42 - Type 2 diabetes mellitus with diabetic polyneuropathy; Z79.4 - [facility]P (current) use of insulin Is this a current diagnosis for this admission?: Yes (3) Hemiplegia affecting dominant side, post-stroke Is this a current diagnosis for this admission?: Yes (4) Constipation Qualifiers: Constipation type: unspecified constipation type Qualified Code(s): K59.00 - Constipation, unspecified Is this a current diagnosis for this admission?: Yes Plan: Patient presently on 2 medication for constipation despite that he is not moving his bowels, CT scan will be obtained to rule out mechanical etiology though unlikely this is most likely functional constipation probably from inactivity (5) Morbid (severe) obesity due to excess calories Is this a current diagnosis for this admission?: Yes
[2019-06-07 21:02] LABS: FREE T4 (FREE THYROXINE) 1.11 ng/dL (0.78-2.19)
[2019-06-07 21:16] LABS: THYROID STIMULATING HORMONE 1.01 uIU/mL (0.47-4.68)
--- NOTE | 2019-06-07 21:33 | XCELERA REPORT ---
[address] [address] Transthoracic Echocardiogram Report Name: JANIE STORM Age: 63 yrs Gender: Male : 1955 Patient Status: Inpatient Patient Location: [address] [place] [address] Study Date: 06/07/2019 06:00 PM Height: 65 in Weight: 286 lb BSA: 2.3 m2 Procedure: A complete two-dimensional transthoracic echocardiogram was performed (2D, M-mode, spectral and color flow Doppler). The study was technically difficult with many images being suboptimal in quality. Reason For Study: r/o CHF Ordering Physician: JOSEPHINE BUCK Performed By: Marcia Rosales Interpretation Summary The left ventricular ejection fraction is normal. Doppler measurements suggest pseudonormalized left ventricular relaxation, which is associated with grade II/IV or mild to moderate diastolic dysfunction There is borderline concentric left ventricular hypertrophy. The left ventricle is grossly normal size. Wall motion cannot be accurately commented on, but no definite regional wall motion abnormalities noted. The right ventricle is grossly normal size. The left atrial size is normal. The right atrium is normal. There is a trace amount of mitral regurgitation There is no mitral valve stenosis. No aortic regurgitation is present. There is no aortic valve stenosis There is a trace amount of tricuspid regurgitation There is no tricuspid stenosis. The aortic root is not well visualized but is probably normal size. The inferior vena cava was not well visualized There is no pericardial effusion. MMode/2D Measurements & Calculations RVDd: 3.4 cm LVIDd: 4.8 cm FS: 31.1 % Ao root diam: 2.8 cm IVSd: 1.2 cm LVIDs: 3.3 cm EDV(Teich): 108.0 ml Ao root area: 6.1 cm2 LVPWd: 1.2 cm ESV(Teich): 44.6 ml LA dimension: 3.6 cm EF(Teich): 58.7 % Doppler Measurements & Calculations MV E max amirah: MV P1/2t max amirah: Ao V2 max: LV V1 max P.3 cm/sec 59.1 cm/sec 188.5 cm/sec 8.1 mmHg MV A max amirah: MV P1/2t: 47.4 msec Ao max PG: LV V1 max: 84.9 cm/sec MVA(P1/2t): 4.6 cm2 14.2 mmHg 142.6 cm/sec MV E/A: 0.66 MV dec slope: 364.8 cm/sec2 MV dec time: 0.21 sec PA V2 max: PI end-d amirah: TR max amirah: MV P1/2t-pr_phl: 99.7 cm/sec 164.4 cm/sec 298.6 cm/sec 47.4 msec PA max PG: TR max P.0 mmHg 35.7 mmHg Left Ventricle The left ventricle is grossly normal size. There is borderline concentric left ventricular hypertrophy. The left ventricular ejection fraction is normal. Doppler measurements suggest pseudonormalized left ventricular relaxation, which is associated with grade II/IV or mild to moderate diastolic dysfunction. Wall motion cannot be accurately commented on, but no definite regional wall motion abnormalities noted. Right Ventricle The right ventricle is grossly normal size. Right ventricular function cannot be assessed due to poor image quality. Atria The right atrium is normal. The left atrial size is normal. Interarterial septum not well visualized and not well dopplered. Cannot comment on ASD/PFO presence. Mitral Valve The mitral valve is grossly normal. There is no mitral valve stenosis. There is a trace amount of mitral regurgitation. Aortic Valve The aortic valve is grossly normal. There is no aortic valve stenosis. No aortic regurgitation is present. Tricuspid Valve The tricuspid valve is not well visualized secondary to technical limitations. There is no tricuspid stenosis. There is a trace amount of tricuspid regurgitation. Pulmonic Valve The pulmonic valve is not well visualized. Great Vessels The aortic root is not well visualized but is probably normal size. The inferior vena cava was not well visualized. Effusions There is no pericardial effusion. : JOSEPHINE BUCK Shyamal
[2019-06-07] MEDS: ASPIRIN 81 MG TABLET, ENT COATED PO SCH (21:54)
[2019-06-07] MEDS: ATORVASTATIN CALCIUM 40 MG TABLET PO SCH (21:54)
[2019-06-07] MEDS: AMLODIPINE BESYLATE 10 MG TABLET PO SCH (21:54)
[2019-06-07] MEDS: METOPROLOL TARTRATE 50 MG TABLET PO SCH (21:54)
[2019-06-07] MEDS: GLIMEPIRIDE 4 MG TABLET PO SCH (21:54)
[2019-06-07] MEDS: NORMAL SALINE 250 ML with FUROSEMIDE 250 MG IV PRN ×2 (21:55)
[2019-06-07] MEDS: ENOXAPARIN SODIUM INJ 40 MG/0.4 ML DISP.SYRIN SUBCUT SCH (21:55)
--- NOTE | 2019-06-07 22:20 | RADIOLOGY REPORT (SQ) ---
EXAM DESCRIPTION: US EXTREMITY VEINS BILATERAL COMPLETED DATE/TME: 06/07/2019 00:00 CLINICAL HISTORY: 63 years Male lower extremity swelling COMPARISON: None. TECHNIQUE: Duplex imaging performed to evaluate bilateral lower extremity venous structures. Compression imaging and augmentation imaging performed. The common femoral, superficial femoral, popliteal, greater saphenous and posterior tibial veins were examined. FINDINGS: No thrombus is identified in the bilateral lower extremity venous structures. IMPRESSION: Study is limited by body habitus No DVT is identified in the bilateral lower extremities.
--- NOTE | 2019-06-07 23:55 | RADIOLOGY REPORT (SQ) ---
EXAM DESCRIPTION: CT scan of the abdomen and pelvis with oral contrast only. CLINICAL HISTORY: 63 years Male; CONSTIPATION TECHNIQUE: CT of the abdomen and pelvis without intravenous contrast. All CT scans at this facility use dose modulation, iterative reconstruction, and/or weight based dosing when appropriate to reduce radiation dose to as low as reasonably achievable. This exam was performed according to our department optimization program which includes automated exposure control, adjustment of the mA and/or kv according to patient size and/or use of iterative reconstruction technique. COMPARISON: Contrast-enhanced CT scan dated July 27, 2017 FINDINGS: Ring artifact is present throughout the examination. This does not limit diagnostic utility. Lower chest: Eventration of the right hemidiaphragm. Mild volume loss is noted in the lung bases. There is mild four-chamber cardiac enlargement. Abdomen: Liver and biliary tree: The unenhanced liver and gallbladder are unremarkable. Pancreas: Normal Spleen:Within normal limits Kidneys: In the upper pole of the right kidney is a 2 mm nonobstructing stone. In the lower pole of the kidney is another 2 mm stone. There is no hydronephrosis bilaterally. Kidneys are normal in size shape and position. Adrenal glands:Within normal limits Vascular structures: Vascular calcifications are noted in the aorta and iliac vessels. Retroperitoneum: No mass or lymphadenopathy Abdominal wall: Again identified is an umbilical hernia containing omentum. The appearance is stable GI: The colon is distended with air. No focal inflammation. No bowel wall thickening. The small bowel is of normal caliber. Appendix: The appendix appears normal. General: No free air. No free fluid Pelvis: Lymph nodes: No mass or lymphadenopathy Bladder: A Mcdonald catheter is present in the bladder and the bladder is decompressed. It does appear to be thick-walled. Pelvis: No pelvic mass or adenopathy. Bones: Vacuum disc is present at the lowest mobile segment is mild multilevel endplate spondylosis. IMPRESSION: 1. Two small nonobstructing right kidney stones. No hydronephrosis. 2. Umbilical hernia. 3. Mcdonald catheter is present in the bladder. The bladder is decompressed but appears to be thick-walled. This raises the possibility of a bladder infection.
[2019-06-08] MEDS: INSULIN GLARGINE,HUM.REC.ANLOG 1,000 UNIT/10 ML VIAL SUBCUT SCH (10:40)
[2019-06-08] MEDS: AMLODIPINE BESYLATE 10 MG TABLET PO SCH (10:41)
[2019-06-08] MEDS: METFORMIN HCL 500 MG TABLET PO SCH (10:41)
[2019-06-08] MEDS: ASPIRIN 81 MG TABLET, ENT COATED PO SCH (10:41)
[2019-06-08] MEDS: LOSARTAN POTASSIUM 50 MG TABLET PO SCH (10:41)
[2019-06-08] MEDS: ENOXAPARIN SODIUM INJ 40 MG/0.4 ML DISP.SYRIN SUBCUT SCH (10:41)
[2019-06-08] MEDS: GLIMEPIRIDE 4 MG TABLET PO SCH (10:42)
[2019-06-08] MEDS: METOPROLOL TARTRATE 50 MG TABLET PO SCH ×2 (10:42→17:45)
[2019-06-08] MEDS: GLYCOPYRROLATE 1 MG TABLET PO SCH ×2 (13:28→21:32)
[2019-06-08] MEDS: NORMAL SALINE 250 ML with FUROSEMIDE 250 MG IV PRN ×2 (17:45)
--- NOTE | 2019-06-08 20:31 | PDOC PROGRESS REPORT ---
Subjective Progress Note for:: 06/08/19 Subjective:: Patient seen by the bedside, still on intravenous furosemide infusion, the 2D echo suggests diastolic dysfunction, probably chronic, the B-Type natruretic peptide level was very low suggesting no CHF, the diastolic dysfunction is probably not a contributing factor to the anasarca that patient is experiencing Reason For Visit: ANASARCA, R/O CHF, LIVER DX, HEPATITIS Physical Exam Vital Signs: Temp Pulse Resp BP Pulse Ox 98.2 F 83 20 119/77 91 L 06/08/19 15:28 06/08/19 15:28 06/08/19 15:28 06/08/19 15:28 06/08/19 15:28 Intake & Output 06/07/19 06/08/19 06/09/19 06:59 06:59 06:59 Intake Total 540 1086 Output Total 3700 1925 Balance -3160 -839 Weight 130.9 kg 130.9 kg General appearance: PRESENT: no acute distress, well-developed, well-nourished Head exam: PRESENT: atraumatic, normocephalic Eye exam: PRESENT: conjunctiva pink, EOMI, PERRLA Ear exam: PRESENT: normal external ear exam Mouth exam: PRESENT: moist, tongue midline Neck exam: PRESENT: full ROM Respiratory exam: PRESENT: clear to auscultation jose luis Cardiovascular exam: PRESENT: RRR, +S1, +S2 Pulses: PRESENT: normal dorsalis pedis pul, +2 pedal pulses bilateral Vascular exam: PRESENT: normal capillary refill GI/Abdominal exam: PRESENT: normal bowel sounds, soft Rectal exam: PRESENT: deferred Neurological exam: PRESENT: alert, CN II-XII grossly intact Psychiatric exam: PRESENT: appropriate affect, normal mood Skin exam: PRESENT: dry, intact, warm Results Laboratory Results: 06/07/19 17:17 06/07/19 17:17 06/07/19 17:17 TSH 1.01 Free T4 1.11 06/07/19 17:17 NT-Pro-B Natriuret Pep 13 Impressions: Abdomen/Pelvis CT 06/07/19 00:00 IMPRESSION: 1. Two small nonobstructing right kidney stones. No hydronephrosis. 2. Umbilical hernia. 3. Mcdonald catheter is present in the bladder. The bladder is decompressed but appears to be thick-walled. This raises the possibility of a bladder infection. Chest X-Ray 06/07/19 00:00 IMPRESSION: NO ACUTE RADIOGRAPHIC FINDING IN THE CHEST. Venous Doppler Study 06/07/19 00:00 IMPRESSION: Study is limited by body habitus No DVT is identified in the bilateral lower extremities. Assessment & Plan - Diagnosis (1) Anasarca Is this a current diagnosis for this admission?: Yes Plan: Continue IV furosemide infusion (2) T2DM (type 2 diabetes mellitus) Qualifiers: Diabetes mellitus salvage determiner insulin use: with salvage determiner use Diabetes mellitus complication status: with neurologic complications Diabetes mellitus complication detail: with polyneuropathy Qualified Code(s): E11.42 - Type 2 diabetes mellitus with diabetic polyneuropathy; Z79.4 - skilled nursing (current) use of insulin Is this a current diagnosis for this admission?: Yes (3) Hemiplegia affecting dominant side, post-stroke Is this a current diagnosis for this admission?: Yes (4) Constipation Qualifiers: Constipation type: unspecified constipation type Qualified Code(s): K59.00 - Constipation, unspecified Is this a current diagnosis for this admission?: Yes Plan: The CAT scan did not show any acute pathologyThis is probably functional constipation (5) Morbid (severe) obesity due to excess calories Is this a current diagnosis for this admission?: Yes (6) Chronic diastolic (congestive) heart failure Is this a current diagnosis for this admission?: Yes - Time Time Spent with patient: 25-34 minutes
[2019-06-08 21:02] LABS: ALBUMIN 4.5 g/dL (3.5-5.0); ALKALINE PHOSPHATASE 92 U/L (38-126); ANION GAP 13 (5-19); ASPARTATE AMINO TRANSFERASE 22 U/L (17-59); BILIRUBIN,DIRECT 0.1 mg/dL (0.0-0.4); BILIRUBIN,TOTAL 0.6 mg/dL (0.2-1.3); BLOOD UREA NITROGEN 23 mg/dL (7-20); CALCIUM 9.1 mg/dL (8.4-10.2); CARBON DIOXIDE 28 mmol/L (22-30); CHLORIDE 99 mmol/L (98-107); GLUCOSE 192 mg/dL (75-110); TOTAL PROTEIN 8.6 g/dL (6.3-8.2)
[2019-06-08] MEDS: ATORVASTATIN CALCIUM 40 MG TABLET PO SCH (21:32)
[2019-06-09] MEDS: GLYCOPYRROLATE 1 MG TABLET PO SCH ×3 (05:17→22:00)
[2019-06-09] MEDS: NORMAL SALINE 250 ML with FUROSEMIDE 250 MG IV PRN ×4 (06:02→19:53)
[2019-06-09] MEDS: ENOXAPARIN SODIUM INJ 40 MG/0.4 ML DISP.SYRIN SUBCUT SCH (10:52)
[2019-06-09] MEDS: INSULIN GLARGINE,HUM.REC.ANLOG 1,000 UNIT/10 ML VIAL SUBCUT SCH (10:53)
[2019-06-09] MEDS: METFORMIN HCL 500 MG TABLET PO SCH (10:53)
[2019-06-09] MEDS: LOSARTAN POTASSIUM 50 MG TABLET PO SCH (10:53)
[2019-06-09] MEDS: AMLODIPINE BESYLATE 10 MG TABLET PO SCH (10:54)
[2019-06-09] MEDS: ASPIRIN 81 MG TABLET, ENT COATED PO SCH (10:54)
[2019-06-09] MEDS: GLIMEPIRIDE 4 MG TABLET PO SCH (10:54)
[2019-06-09] MEDS: METOPROLOL TARTRATE 50 MG TABLET PO SCH ×2 (10:54→17:42)
--- NOTE | 2019-06-09 15:56 | PDOC PROGRESS REPORT ---
Subjective Progress Note for:: 06/09/19 Subjective:: Patient seen by the bedside, well diuresed Reason For Visit: ANASARCA, R/O CHF, LIVER DX, HEPATITIS Physical Exam Vital Signs: Temp Pulse Resp BP Pulse Ox 98.6 F 71 18 110/67 88 L 06/09/19 15:31 06/09/19 15:31 06/09/19 15:31 06/09/19 15:31 06/09/19 15:31 Intake & Output 06/08/19 06/09/19 06/10/19 06:59 06:59 06:59 Intake Total 540 1332 357 Output Total 3700 2375 Balance -1709 -0610 357 Weight 130.9 kg 124.8 kg General appearance: PRESENT: no acute distress Eye exam: PRESENT: PERRLA Respiratory exam: PRESENT: clear to auscultation jose luis Cardiovascular exam: PRESENT: +S1, +S2 GI/Abdominal exam: PRESENT: soft Results Laboratory Results: 06/07/19 17:17 06/08/19 20:28 06/08/19 20:28 Sodium 140.4 Potassium 4.0 Chloride 99 Carbon Dioxide 28 Anion Gap 13 BUN 23 H Creatinine 1.29 H Est GFR ( Amer) > 60 Glucose 192 H Calcium 9.1 Total Bilirubin 0.6 AST 22 Alkaline Phosphatase 92 Total Protein 8.6 H Albumin 4.5 06/07/19 17:17 NT-Pro-B Natriuret Pep 13 Impressions: Abdomen/Pelvis CT 06/07/19 00:00 IMPRESSION: 1. Two small nonobstructing right kidney stones. No hydronephrosis. 2. Umbilical hernia. 3. Mcdonald catheter is present in the bladder. The bladder is decompressed but appears to be thick-walled. This raises the possibility of a bladder infection. Chest X-Ray 06/07/19 00:00 IMPRESSION: NO ACUTE RADIOGRAPHIC FINDING IN THE CHEST. Venous Doppler Study 06/07/19 00:00 IMPRESSION: Study is limited by body habitus No DVT is identified in the bilateral lower extremities. Assessment & Plan - Diagnosis (1) Anasarca Is this a current diagnosis for this admission?: Yes Plan: Reduce infusion rate of furosemide infusion from 20 mg/h to 2 mg/h (2) T2DM (type 2 diabetes mellitus) Qualifiers: Diabetes mellitus lobsterman insulin use: with lobsterman use Diabetes mellitus complication status: with neurologic complications Diabetes mellitus complication detail: with polyneuropathy Qualified Code(s): E11.42 - Type 2 diabetes mellitus with diabetic polyneuropathy; Z79.4 - [facility] (current) use of insulin Is this a current diagnosis for this admission?: Yes (3) Hemiplegia affecting dominant side, post-stroke Is this a current diagnosis for this admission?: Yes (4) Constipation Qualifiers: Constipation type: unspecified constipation type Qualified Code(s): K59.00 - Constipation, unspecified Is this a current diagnosis for this admission?: Yes (5) Morbid (severe) obesity due to excess calories Is this a current diagnosis for this admission?: Yes (6) Chronic diastolic (congestive) heart failure Is this a current diagnosis for this admission?: Yes - Time Time Spent with patient: 15-24 minutes Level of Care: IMCU
[2019-06-09] MEDS: ATORVASTATIN CALCIUM 40 MG TABLET PO SCH (21:59)
[2019-06-10] MEDS: GLYCOPYRROLATE 1 MG TABLET PO SCH ×2 (05:13→16:03)
[2019-06-10] MEDS: METOPROLOL TARTRATE 50 MG TABLET PO SCH ×2 (09:40→16:03)
[2019-06-10] MEDS: AMLODIPINE BESYLATE 10 MG TABLET PO SCH (09:40)
[2019-06-10] MEDS: METFORMIN HCL 500 MG TABLET PO SCH (09:40)
[2019-06-10] MEDS: LOSARTAN POTASSIUM 50 MG TABLET PO SCH (09:40)
[2019-06-10] MEDS: ASPIRIN 81 MG TABLET, ENT COATED PO SCH (09:40)
[2019-06-10] MEDS: GLIMEPIRIDE 4 MG TABLET PO SCH (09:41)
[2019-06-10] MEDS: ENOXAPARIN SODIUM INJ 40 MG/0.4 ML DISP.SYRIN SUBCUT SCH (09:41)
[2019-06-10] MEDS: NORMAL SALINE 250 ML with FUROSEMIDE 250 MG IV PRN ×2 (09:42)
[2019-06-10] MEDS ORDERED: INSULIN GLARGINE,HUM.REC.ANLOG 1,000 UNIT/10 ML VIAL SUBCUT SCH (10:00)
[2019-06-10 10:30] LABS: HEMATOCRIT 45.4 % (37.9-51.0); MEAN CORPUSCULAR HEMOGLOBIN 28.7 pg (27.0-33.4); MEAN CORPUSCULAR HGB CONC 33.1 g/dL (32.0-36.0); MEAN CORPUSCULAR VOLUME 87 fl (80-97); PLATELET COUNT 188 10^3/uL (150-450); RED BLOOD COUNT 5.25 10^6/uL (4.35-5.55); WHITE BLOOD COUNT 6.7 10^3/uL (4.0-10.5)
[2019-06-10 10:44] LABS: ANION GAP 10 (5-19); BLOOD UREA NITROGEN 27 mg/dL (7-20); CALCIUM 9.1 mg/dL (8.4-10.2); CARBON DIOXIDE 32 mmol/L (22-30); CHLORIDE 96 mmol/L (98-107); GLUCOSE 246 mg/dL (75-110); POTASSIUM 3.9 mmol/L (3.6-5.0)
[2019-06-10 17:48] VITALS: BP 130/93
[2019-06-10] MEDS ORDERED: PHARMACY COMMUNICATION ORDER MC SCH (18:00)
--- NOTE | 2019-06-10 19:52 | PDOC DISCHARGE SUMMARY ---
Impression - Admit/DC Date/PCP Admission Date/Primary Care Provider: 06/07/19 16:19 JOSEPHINE BUCK MD Discharge Date: 06/10/19 - Discharge Diagnosis (1) Anasarca Is this a current diagnosis for this admission?: Yes (2) T2DM (type 2 diabetes mellitus) Is this a current diagnosis for this admission?: Yes (3) Hemiplegia affecting dominant side, post-stroke Is this a current diagnosis for this admission?: Yes (4) Constipation Is this a current diagnosis for this admission?: Yes (5) Morbid (severe) obesity due to excess calories Is this a current diagnosis for this admission?: Yes (6) Chronic diastolic (congestive) heart failure Is this a current diagnosis for this admission?: Yes - Additional Information Discharge Diet: Cardiac Discharge Activity: Activity As Tolerated, Balance Activity w/Rest, Slowly Increase Activity Referrals: JOSEPHINE BUCK MD [Primary Care Provider] - 06/17/19 1:30 pm Prescriptions: Furosemide [Lasix 40 mg Tablet] 40 mg PO QAM #30 tablet Home Medications: RX: Amlodipine Besylate [Norvasc 10 mg Tablet] 10 mg PO DAILY 07/09/16 RX: Glycopyrrolate [Robinul Forte 1 mg Tablet] 1 mg PO DAILY 07/09/16 RX: Metoprolol Tartrate [Lopressor 50 mg Tablet] 50 mg PO BIDBS 07/09/16 RX: Omeprazole 40 mg PO Q6AM 07/09/16 RX: Aspirin [Aspirin EC] 81 mg PO DAILY 07/27/17 RX: Atorvastatin Calcium [Lipitor 40 mg Tablet] 40 mg PO QHS 06/07/19 RX: Dapagliflozin Propanediol [Farxiga] 10 mg PO DAILY 06/07/19 RX: Glimepiride [Amaryl 4 mg Tablet] 4 mg PO DAILY 06/07/19 RX: Insulin Glargine,Hum.rec.anlog [Lantus Insulin 100 Unit/1 ml 10 ml] 25 units SQ DAILY 06/07/19 RX: Linaclotide [Linzess 145 Mcg Capsule] 145 mcg PO DAILY 06/07/19 RX: Losartan Potassium 100 mg PO DAILY 06/07/19 RX: Metformin HCl [Glucophage] 1,000 mg PO DAILY 06/07/19 RX: Phentermine HCl [Adipex-P] 30 mg PO DAILY 06/07/19 RX: Plecanatide [Trulance] 3 mg PO DAILY 06/07/19 Furosemide [Lasix 40 mg Tablet] 40 mg PO QAM #30 tablet 06/10/19 History of Present Illiness History of Present Illness: JANIE STORM is a 63 year old male, He has history of cerebral infarction with right-sided hemiplegia, type 2 diabetes mellitus, he came to the office for evaluation of severe bilateral lower extremity edema, there was also swelling of the upper extremities, it was difficult to discern the exact etiology of the anasarca syndrome the differential diagnosis includes, CHF, nephrotic syndrome, chronic liver disease but because the differential diagnosis is quite long I felt the best plan of care was to admit patient directly to the hospital for management. The B type natruretic peptide serum level was normal this essentially rule out CHF, the urine protein creatinine ratio is normal this essentially rule out nephrotic syndrome, the other potential etiology could be obesity ,inactivity ,medication Hospital Course Hospital Course: Patient was admitted for the management of anasarca, he was treated with furosemide infusion at 20 mg/h, on admission the body weight was 129 kg on discharge today the body weight is 122 kg. He was evaluated for potential causes of the anasarca, there was no laboratory evidence of nephrotic syndrome, the B type natruretic peptide level was normal, this virtually rules out CHF, a 2D echo was done, it demonstrated preserved ejection fraction of left ventricle there was grade 2 diastolic dysfunction but there was no CHF. There was no evidence of liver disease the potential etiology included obesity, immobility, medication, he has a history of cerebral infarction with residual right-sided hemiplegia, the stroke limits is ability to ambulate and exercise on regular basis. Physical Exam Vital Signs: Temp Pulse Resp BP Pulse Ox 98.9 F 77 17 130/93 H 89 L 06/10/19 17:47 06/10/19 17:47 06/10/19 17:47 06/10/19 17:47 06/10/19 17:47 Intake & Output 06/09/19 06/10/19 06/11/19 06:59 06:59 06:59 Intake Total 1332 1587 610 Output Total 1930 2540 600 Balance -2343 -538 10 Weight 124.8 kg 122.6 kg General appearance: PRESENT: no acute distress Eye exam: PRESENT: PERRLA Respiratory exam: PRESENT: clear to auscultation jose luis Cardiovascular exam: PRESENT: +S1, +S2 GI/Abdominal exam: PRESENT: soft Rectal exam: PRESENT: other Results Laboratory Results: WBC 6.7 10^3/uL (4.0-10.5) 06/10/19 10:14 RBC 5.25 10^6/uL (4.35-5.55) 06/10/19 10:14 Hgb 15.0 g/dL (13.5-17.0) 06/10/19 10:14 Hct 45.4 % (37.9-51.0) 06/10/19 10:14 MCV 87 fl (80-97) 06/10/19 10:14 MCH 28.7 pg (27.0-33.4) 06/10/19 10:14 MCHC 33.1 g/dL (32.0-36.0) 06/10/19 10:14 RDW 18.0 % (11.5-14.0) H 06/10/19 10:14 Plt Count 188 10^3/uL (150-450) 06/10/19 10:14 Sodium 138.0 mmol/L (137-145) 06/10/19 10:14 Potassium 3.9 mmol/L (3.6-5.0) 06/10/19 10:14 Chloride 96 mmol/L (98-107) L 06/10/19 10:14 Carbon Dioxide 32 mmol/L (22-30) H 06/10/19 10:14 Anion Gap 10 (5-19) 06/10/19 10:14 BUN 27 mg/dL (7-20) H 06/10/19 10:14 Creatinine 1.28 mg/dL (0.52-1.25) H 06/10/19 10:14 Est GFR ( Amer) > 60 (>60) 06/10/19 10:14 Est GFR (MDRD) Non-Af 57 (>60) L 06/10/19 10:14 Glucose 246 mg/dL (75-110) H 06/10/19 10:14 POC Glucose 169 mg/dL (70-110) H 06/10/19 15:55 Hemoglobin A1c % 8.6 % (4.7-6.0) H 06/07/19 17:17 Calcium 9.1 mg/dL (8.4-10.2) 06/10/19 10:14 Total Bilirubin 0.6 mg/dL (0.2-1.3) 06/08/19 20:28 Direct Bilirubin 0.1 mg/dL (0.0-0.4) 06/08/19 20:28 Neonat Total Bilirubin Not Reportable 06/08/19 20:28 Neonat Direct Bilirubin Not Reportable 06/08/19 20:28 Neonat Indirect Bili Not Reportable 06/08/19 20:28 AST 22 U/L (17-59) 06/08/19 20:28 ALT 27 U/L (<50) 06/08/19 20: Alkaline Phosphatase 92 U/L (38-126) 06/08/19 20:28 NT-Pro-B Natriuret Pep 13 pg/mL (<125) 06/07/19 17:17 Total Protein 8.6 g/dL (6.3-8.2) H 06/08/19 20:28 Albumin 4.5 g/dL (3.5-5.0) 06/08/19 20:28 TSH 1.01 uIU/mL (0.47-4.68) 06/07/19 17:17 Free T4 1.11 ng/dL (0.78-2.19) 06/07/19 17:17 Urine Color YELLOW 06/07/19 17:05 Urine Appearance CLEAR 06/07/19 17:05 Urine pH 6.0 (5.0-9.0) 06/07/19 17:05 Ur Specific [place] 1.026 06/07/19 17:05 Urine Protein NEGATIVE mg/dL (NEGATIVE) 06/07/19 17:05 Urine Glucose (UA) >=500 mg/dL (NEGATIVE) H 06/07/19 17:05 Urine Ketones NEGATIVE mg/dL (NEGATIVE) 06/07/19 17:05 Urine Blood LARGE (NEGATIVE) H 06/07/19 17:05 Urine Nitrite NEGATIVE (NEGATIVE) 06/07/19 17:05 Urine Bilirubin NEGATIVE (NEGATIVE) 06/07/19 17:05 Urine Urobilinogen 2.0 mg/dL (<2.0) H 06/07/19 17:05 Ur Leukocyte Esterase NEGATIVE (NEGATIVE) 06/07/19 17:05 Urine WBC (Auto) 1 /HPF 06/07/19 17:05 Urine RBC (Auto) 131 /HPF 06/07/19 17:05 Squamous Epi Cells Auto <1 /HPF 06/07/19 17:05 Urine Mucus (Auto) RARE /LPF 06/07/19 17:05 Urine Creatinine 95.9 mg/dL (22-328) 06/07/19 17:05 Protein/Creatinin Ratio 0.1 mg/mg (0.0-0.2) 06/07/19 17:05 Urine Total Protein 13.3 mg/dL (<12) H 06/07/19 17:05 Urine Ascorbic Acid NEGATIVE (NEGATIVE) 06/07/19 17:05 06/07/19 17:17 NT-Pro-B Natriuret Pep 13 Impressions: Abdomen/Pelvis CT 06/07/19 00:00 IMPRESSION: 1. Two small nonobstructing right kidney stones. No hydronephrosis. 2. Umbilical hernia. 3. Mcdonald catheter is present in the bladder. The bladder is decompressed but appears to be thick-walled. This raises the possibility of a bladder infection. Chest X-Ray 06/07/19 00:00 IMPRESSION: NO ACUTE RADIOGRAPHIC FINDING IN THE CHEST. Venous Doppler Study 06/07/19 00:00 IMPRESSION: Study is limited by body habitus No DVT is identified in the bilateral lower extremities. Stroke Is this a Stroke Patient?: No Acute Heart Failure - Is this a Heart Failure Patient?: No
== END 2019-06-10 17:57 | disposition home or self-care (01) | DRG 641 ==
LOC: 3S 16:19
PROVIDERS: ADMIT Internal Medicine; ATTEND Internal Medicine
DX: E66.01 Morbid (severe) obesity due to excess calories (principal); I69.351 Hemiplegia and hemiparesis following cerebral infarction affecting right dominant side; R60.1 Generalized edema; Z68.42 Body mass index [BMI] 45.0-49.9, adult; K59.00 Constipation, unspecified; I25.10 Atherosclerotic heart disease of native coronary artery without angina pectoris; E78.5 Hyperlipidemia, unspecified; E11.42 Type 2 diabetes mellitus with diabetic polyneuropathy; I10 Essential (primary) hypertension; Z79.4 Long term (current) use of insulin; Z79.899 Other long term (current) drug therapy; Z95.5 Presence of coronary angioplasty implant and graft; Z87.891 Personal history of nicotine dependence; Z79.82 Long term (current) use of aspirin
CPT/HCPCS: 36415; 71046; 74176; 80048; 80053; 80076; 81001; 82570; 82962; 83036; 83880; 84156; 84439; 84443; 85027; 93306; 93970; J1650; J1815; J1940; J3490; J7050

== ENCOUNTER 2020-02-08 16:50 | Observation (INO) | payer MEDICARE ==
--- NOTE | 2020-02-08 17:20 | ER Document Report ---
ED Medical Screen (RME) - General Chief Complaint: Swelling of Lower Extremity Stated Complaint: LOW EXTREMITY SWELLING/DIRECT ADMIT Time Seen by Provider: 02/08/20 17:16 TRAVEL OUTSIDE OF THE [place] IN LAST 30 DAYS: No - HPI Notes: 02/08/20 17:17 64-year-old male with a history of type 2 diabetes, left-sided CVA with right hemiplegia presents to the emergency room with right lower extremity swelling and pain that has become progressively worse he was sent over by Dr. Villaseñor for direct admission. Patient denies any fevers or chills. Denies any chest pain shortness of breath, nausea vomiting or diarrhea. Patient states that he has had right leg swelling for a very long time. Worse with time, nothing makes better. Dr. Villaseñor did order venous Doppler, D-dimer, CBC, CMP, urinalysis, chest x-ray, D-dimer, A1c TSH, protein/creatinine ratio. MEDICATIONS: I agree with the patient medications as charted by the RN. ALLERGIES: I agree with the allergies as charted by the RN. PAST MEDICAL HISTORY/PAST SURGICAL HISTORY: Reviewed and agree as charted by RN. SOCIAL HISTORY: Reviewed and agree as charted by RN. FAMILY HISTORY: No significant familial comorbid conditions directly related to patient complaint EXAM: Reviewed vital signs as charted by RN. REVIEW OF SYSTEMS:reviewed vital signs by RN CONSTITUTIONAL : Denies fever, chills, or sweats. Denies recent illness. EENT: Denies eye, ear, throat, or mouth pain or symptoms. Denies nasal or sinus congestion or discharge. Denies throat, tongue, or mouth swelling or difficulty swallowing. CARDIOVASCULAR: Denies chest pain. Denies palpitations or racing or irregular heart beat. Denies ankle edema. RESPIRATORY: Denies cough, cold, or chest congestion. Denies shortness of breath, difficulty breathing, or wheezing. GASTROINTESTINAL: Denies abdominal pain or distention. Denies nausea, vomiting, or diarrhea. Denies blood in vomitus, stools, or per rectum. Denies black, tarry stools. Denies constipation. GENITOURINARY: Denies difficulty urinating, painful urination, burning, frequency, blood in urine, or discharge. MUSCULOSKELETAL: Denies back or neck pain or stiffness. Denies joint pain or swelling. SKIN: Reports right lower extremity redness, swelling, drainage or warmth to touch. denies rash, lesions or sores. HEMATOLOGIC : Denies easy bruising or bleeding. LYMPHATIC: Denies swollen, enlarged glands. NEUROLOGICAL: Has baseline right-sided hemiplegia. denies confusion or altered mental status. Denies passing out or loss of consciousness. Denies dizziness or lightheadedness. Denies headache. Denies weakness or paralysis or loss of use of either side. Denies problems with gait or speech. Denies sensory loss, numbness, or tingling. Denies seizures. PSYCHIATRIC: Denies anxiety or stress. Denies depression, suicidal ideation, or homicidal ideation. ALL OTHER SYSTEMS REVIEWED AND NEGATIVE. Dictation was performed using [employer] voice recognition software PHYSICAL EXAMINATION: GENERAL: Chronically ill obese and in no acute distress. HEAD: Atraumatic, normocephalic. EYES: Pupils equal round and reactive to light, extraocular movements intact, sclera anicteric, conjunctiva are normal. NECK: Normal range of motion, supple without lymphadenopathy LUNGS: Breath sounds clear to auscultation bilaterally and equal. No wheezes rales or rhonchi. HEART: Regular rate and rhythm without murmurs ABDOMEN: Soft, nontender, nondistended abdomen. No guarding, no rebound. No m asses appreciated. Musculoskeletal: Normal range of motion, no pitting or edema. No cyanosis. Parmjit ateral lower extremities with pitting edema, pulses +2 bilaterally equally. NEUROLOGICAL: Right-sided hemiplegia. Normal speech, in a wheelchair. Normal sensory, motor exams PSYCH: Normal mood, normal affect. SKIN: Warm, Dry, normal turgor, no rashes or lesions noted. Reports right lower extremity swelling erythema warmth to touch - Related Data Allergies/Adverse Reactions: No Known Allergies Allergy (Verified 07/27/17 15:06) Past Medical History - Past Medical History Cardiac Medical History: Reports: Hx Coronary Artery Disease, Hx Hypercholesterolemia, Hx Hypertension Pulmonary Medical History: Reports: Hx COPD Neurological Medical History: Reports: Hx Cerebrovascular Accident Endocrine Medical History: Reports: Hx Diabetes Mellitus Type 2. Denies: Hx Diabetes Mellitus Type 1 Renal/ Medical History: Denies: Hx Peritoneal Dialysis GI Medical History: Reports: Hx Gastroesophageal Reflux Disease Psychiatric Medical History: Reports: Hx Depression Past Surgical History: Reports: Hx Cardiac Surgery, Hx Coronary Stent - Immunizations Hx Diphtheria, Pertussis, Tetanus Vaccination: Yes Physical Exam - Vital signs Vitals: Temp Pulse Resp BP Pulse Ox 98.5 F 81 16 139/97 H 91 L 02/08/20 17:07 02/08/20 17:07 02/08/20 17:07 02/08/20 17:07 02/08/20 17:07 Course - Re-evaluation Re-evalutation: 02/08/20 20:09 Afebrile vital stable no distress. Nurses notes reviewed. Venous Doppler negative. D-dimer negative. Patient is admitted under Dr. Villaseñor and orders have been placed. Patient is remaining in the ER until a bed has opened up. A1c 7.5. Diet placed for patient. Patient agreeable with being admitted under Dr. Villaseñor's care. 02/08/20 20:10 - Vital Signs Vital signs: Temp Pulse Resp BP Pulse Ox 98.5 F 81 16 139/97 H 91 L 02/08/20 17:07 02/08/20 17:07 02/08/20 17:07 02/08/20 17:07 02/08/20 17:07 - Laboratory Result Diagrams: 02/08/20 18:50 02/08/20 18:50 Laboratory results interpreted by me: 02/08/20 02/08/20 02/08/20 18:50 18:50 18:50 MCHC 31.6 L RDW 18.2 H Carbon Dioxide 33 H Hemoglobin A1c % 7.5 H AST 16 L Total Protein 8.7 H Doctor's Discharge - Discharge Clinical Impression: Right leg swelling, T2DM (type 2 diabetes mellitus) Condition: Stable Disposition: ADMITTED INPATIENT
--- NOTE | 2020-02-08 18:23 | RADIOLOGY REPORT (SQ) ---
EXAM DESCRIPTION: CHEST 2 VIEWS IMAGES COMPLETED DATE/TIME: 02/08/2020 6:15 pm REASON FOR STUDY: er weak/ COMPARISON: 06/07/2019 EXAM PARAMETERS: NUMBER OF VIEWS: two views TECHNIQUE: Digital Frontal and Lateral radiographic views of the chest acquired. RADIATION DOSE: NA LIMITATIONS: Lateral film is limited due to low lung volumes. FINDINGS: LUNGS AND PLEURA: No opacities, masses or pneumothorax. No pleural effusion. MEDIASTINUM AND HILAR STRUCTURES: No masses or contour abnormalities. HEART AND VASCULAR STRUCTURES: Heart normal size. No evidence for failure. BONES: No acute findings. HARDWARE: None in the chest. OTHER: No other significant finding. IMPRESSION: NO ACUTE RADIOGRAPHIC FINDING IN THE CHEST. TECHNICAL DOCUMENTATION: JOB ID: [id number] 2010 [employer]- All Rights Reserved Reading location - IP/workstation name: [email or web address]
[2020-02-08 19:07] LABS: HEMATOCRIT 46.8 % (37.9-51.0); HEMOGLOBIN 14.8 g/dL (13.5-17.0); MEAN CORPUSCULAR HEMOGLOBIN 27.4 pg (27.0-33.4); MEAN CORPUSCULAR HGB CONC 31.6 g/dL (32.0-36.0); MEAN CORPUSCULAR VOLUME 87 fl (80-97); PLATELET COUNT 188 10^3/uL (150-450); RED CELL DISTRIBUTION WIDTH 18.2 % (11.5-14.0); WHITE BLOOD COUNT 5.4 10^3/uL (4.0-10.5)
[2020-02-08 19:29] LABS: ALBUMIN 4.5 g/dL (3.5-5.0); ALKALINE PHOSPHATASE 91 U/L (38-126); ANION GAP 8 (5-19); ASPARTATE AMINO TRANSFERASE 16 U/L (17-59); BILIRUBIN,DIRECT 0.1 mg/dL (0.0-0.4); BILIRUBIN,TOTAL 0.5 mg/dL (0.2-1.3); BLOOD UREA NITROGEN 15 mg/dL (7-20); CALCIUM 9.4 mg/dL (8.4-10.2); CARBON DIOXIDE 33 mmol/L (22-30); CHLORIDE 101 mmol/L (98-107); GLUCOSE 96 mg/dL (75-110); POTASSIUM 3.9 mmol/L (3.6-5.0); TOTAL PROTEIN 8.7 g/dL (6.3-8.2)
[2020-02-08 19:47] LABS: FREE T4 (FREE THYROXINE) 1.01 ng/dL (0.78-2.19)
[2020-02-08 20:01] LABS: THYROID STIMULATING HORMONE 1.02 uIU/mL (0.47-4.68)
--- NOTE | 2020-02-08 20:54 | RADIOLOGY REPORT (SQ) ---
EXAM DESCRIPTION: US EXTREMITY VEINS UNILATERAL COMPLETED DATE/TME: 02/08/2020 20:16 CLINICAL HISTORY: 64 years, Male, er r leg swollen COMPARISON: None. TECHNIQUE: Axial 2-D grayscale images of the right lower extremity were acquired. Doppler was utilized. LIMITATIONS: None. FINDINGS: Right common femoral, femoral, popliteal, posterior tibial, greater saphenous, and small saphenous veins demonstrate normal compressibility and phasicity. Superficial soft tissues show no suspicious abnormality. Likewise, the right common femoral vein also appears normal. IMPRESSION: No evidence of deep venous thrombosis within the right lower extremity. copyright 2010 [employer]- All Rights Reserved
[2020-02-08] MEDS ORDERED: (PENDING PHARMACY ID) (Linaclotide 145 MCG Capsule) PO SCH (22:45)
[2020-02-08] MEDS ORDERED: (PENDING PHARMACY ID) (Dapagliflozin Propanediol [Farxiga] 10 MG Tablet) PO SCH (22:45)
[2020-02-09 00:09] LABS: APPEARANCE,URINE CLEAR; BILIRUBIN,URINE NEGATIVE (NEGATIVE); COLOR,URINE YELLOW; GLUCOSE, URINE >=500 mg/dL (NEGATIVE); KETONES,URINE NEGATIVE (NEGATIVE); LEUKOCYTE ESTERASE,URINE NEGATIVE (NEGATIVE); NITRITE,URINE NEGATIVE (NEGATIVE); PROTEIN,URINE NEGATIVE (NEGATIVE); URINE SPECIFIC GRAVITY 1.025
[2020-02-09 00:27] LABS: URINE CREATININE 151.7 mg/dL (22-328); URINE PROTEIN 13.8 mg/dL (<12)
[2020-02-09] MEDS ORDERED: FUROSEMIDE INJ/PF 100 MG/10 ML SDV ONE ×2 (00:33→00:50)
[2020-02-09] MEDS: GLIMEPIRIDE 4 MG TABLET PO SCH ×2 (01:05→10:49)
[2020-02-09] MEDS: METOPROLOL TARTRATE 50 MG TABLET PO SCH ×3 (01:05→18:30)
[2020-02-09] MEDS: ENOXAPARIN SODIUM INJ 40 MG/0.4 ML DISP.SYRIN SUBCUT SCH ×2 (01:06→10:46)
[2020-02-09] MEDS: AMLODIPINE BESYLATE 10 MG TABLET PO SCH ×2 (01:06→10:45)
[2020-02-09] MEDS: ATORVASTATIN CALCIUM 40 MG TABLET PO SCH ×2 (01:06→22:23)
[2020-02-09] MEDS: ASPIRIN 81 MG TABLET, ENT COATED PO SCH ×2 (01:06→10:46)
[2020-02-09] MEDS: NORMAL SALINE 250 ML with FUROSEMIDE 250 MG IV PRN ×2 (01:54)
[2020-02-09] MEDS ORDERED: GLYCOPYRROLATE 1 MG TABLET ONE (02:23)
[2020-02-09] MEDS: GLYCOPYRROLATE 1 MG TABLET PO SCH ×2 (02:33→14:31)
[2020-02-09] MEDS: PANTOPRAZOLE SODIUM 40 MG TABLET.DR PO SCH (05:29)
[2020-02-09] MEDS: METFORMIN HCL 500 MG TABLET PO SCH (10:45)
[2020-02-09] MEDS: LOSARTAN POTASSIUM 50 MG TABLET PO SCH (10:46)
[2020-02-09] MEDS: INSULIN GLARGINE,HUM.REC.ANLOG 1,000 UNIT/10 ML VIAL SUBCUT SCH (10:46)
[2020-02-09 12:47] LABS: ALBUMIN 4.3 g/dL (3.5-5.0); ALKALINE PHOSPHATASE 101 U/L (38-126); ANION GAP 7 (5-19); ASPARTATE AMINO TRANSFERASE 17 U/L (17-59); BILIRUBIN,DIRECT 0.2 mg/dL (0.0-0.4); BILIRUBIN,TOTAL 0.8 mg/dL (0.2-1.3); BLOOD UREA NITROGEN 16 mg/dL (7-20); CARBON DIOXIDE 34 mmol/L (22-30); CHLORIDE 99 mmol/L (98-107); GLUCOSE 126 mg/dL (75-110); POTASSIUM 4.2 mmol/L (3.6-5.0); TOTAL PROTEIN 8.6 g/dL (6.3-8.2)
[2020-02-09 13:12] LABS: UR PRO/CREAT RATIO RESULT 0.1 mg/mg (0.0-0.2); URINE CREATININE 153.9 mg/dL (22-328); URINE PROTEIN 14.1 mg/dL (<12)
[2020-02-09] MEDS ORDERED: BISACODYL 5 MG TABEC PO ONE (17:15)
--- NOTE | 2020-02-09 19:45 | PDOC H&P ---
History of Present Illness Admission Date/PCP: 02/08/20 20:03 JOSEPHINE BUCK MD History of Present Illness: JANIE STORM is a 64 year old male,He has a history of CVA with right- sided hemiplegia, He came to the office for evaluation of severe swelling of the right leg, because of immobility and also there is paralysis of the Right side of his body ,I suspected deep vein thrombosis, he was admitted directly from the office into the hospital, a venous Doppler was done it was negative for DVT.Patient also complained of severe constipation despite taking Linzess and also Amitiza for constipation, he has chronic constipation this problem is ongoing for several years it is Exacerbated because of sedentary lifestyle due to cerebral infarction with right-sided hemiplegia Past Medical History Cardiac Medical History: Reports: Coronary Artery Disease, Hyperlipidema, Hypertension Pulmonary Medical History: Reports: Chronic Obstructive Pulmonary Disease (COPD) Neurological Medical History: Reports: Ischemic CVA Endocrine Medical History: Reports: Diabetes Mellitus Type 2 GI Medical History: Reports: Gastroesophageal Reflux Disease Psychiatric Medical History: Reports: Depression Past Surgical History Past Surgical History: Reports: Coronary Stent Social History Smoking Status: Former Smoker Frequency of Alcohol Use: None Hx Recreational Drug Use: No Drugs: None Hx Prescription Drug Abuse: No Family History Family History: Reviewed & Not Pertinent Parental Family History Reviewed: Yes Children Family History Reviewed: Yes Sibling(s) Family History Reviewed.: Yes Medication/Allergy Home Medications: Amlodipine Besylate [Norvasc 10 mg Tablet] 10 mg PO DAILY 07/09/16 Glycopyrrolate [Robinul Forte 1 mg Tablet] 1 mg PO DAILY 07/09/16 Metoprolol Tartrate [Lopressor 50 mg Tablet] 50 mg PO BIDBS 07/09/16 Omeprazole 40 mg PO Q6AM 07/09/16 Aspirin [Aspirin EC] 81 mg PO DAILY 07/27/17 Atorvastatin Calcium [Lipitor 40 mg Tablet] 40 mg PO QHS 06/07/19 Dapagliflozin Propanediol [Farxiga] 10 mg PO DAILY 06/07/19 Glimepiride [Amaryl 4 mg Tablet] 4 mg PO DAILY 06/07/19 Insulin Glargine,Hum.rec.anlog [Lantus Insulin 100 Unit/1 ml 10 ml] 25 units SQ DAILY 06/07/19 Linaclotide [Linzess 145 Mcg Capsule] 145 mcg PO DAILY 06/07/19 Losartan Potassium 100 mg PO DAILY 06/07/19 Metformin HCl [Glucophage] 1,000 mg PO DAILY 06/07/19 Phentermine HCl [Adipex-P] 30 mg PO DAILY 06/07/19 Furosemide [Lasix 40 mg Tablet] 40 mg PO QAM #30 tablet 06/10/19 Semaglutide [Ozempic] 0.5 mg SQ MO 02/08/20 Allergies/Adverse Reactions: No Known Allergies Allergy (Verified 07/27/17 15:06) Review of Systems Constitutional: ABSENT: chills, fever(s), headache(s), weight gain, weight loss Eyes: ABSENT: visual disturbances Ears: ABSENT: hearing changes Cardiovascular: PRESENT: edema. ABSENT: chest pain, dyspnea on exertion, orthropnea, palpitations Respiratory: ABSENT: cough, hemoptysis Gastrointestinal: PRESENT: constipation. ABSENT: abdominal pain, diarrhea, hematemesis, hematochezia, nausea, vomiting Genitourinary: ABSENT: dysuria, hematuria Musculoskeletal: ABSENT: joint swelling Integumentary: ABSENT: rash, wounds Neurological: ABSENT: abnormal gait, abnormal speech, confusion, dizziness, focal weakness, syncope Psychiatric: ABSENT: anxiety, depression, homidical ideation, suicidal ideation Endocrine: ABSENT: cold intolerance, heat intolerance, menstrual abnormalities, polydipsia, polyuria Hematologic/Lymphatic: ABSENT: easy bleeding, easy bruising, lymphadenopathy Physical Exam Vital Signs: Temp Pulse Resp BP Pulse Ox 98.0 F 90 22 H 136/85 H 93 02/09/20 15:57 02/09/20 15:57 02/09/20 15:57 02/09/20 15:57 02/09/20 15:57 Intake & Output 02/08/20 02/09/20 02/10/20 06:59 06:59 06:59 Intake Total 220 750 Output Total 1150 1375 Balance -930 -625 Weight 131.7 kg General appearance: PRESENT: no acute distress, well-developed, well-nourished Head exam: PRESENT: atraumatic, normocephalic Eye exam: PRESENT: conjunctiva pink, EOMI, PERRLA Ear exam: PRESENT: normal external ear exam Mouth exam: PRESENT: moist, tongue midline Neck exam: PRESENT: full ROM Respiratory exam: PRESENT: clear to auscultation jose luis Cardiovascular exam: PRESENT: RRR, +S1, +S2 Pulses: PRESENT: normal dorsalis pedis pul, +2 pedal pulses bilateral Vascular exam: PRESENT: normal capillary refill GI/Abdominal exam: PRESENT: normal bowel sounds, soft Rectal exam: PRESENT: deferred Neurological exam: PRESENT: alert, motor sensory deficit, other - Right-sided hemiplegia Psychiatric exam: PRESENT: appropriate affect, normal mood. ABSENT: homicidal ideation, suicidal ideation Skin exam: PRESENT: dry, intact, warm. ABSENT: cyanosis, rash Results Laboratory Results: 02/08/20 18:50 02/09/20 11:17 02/08/20 02/08/20 02/09/20 18:50 23:30 09:00 Sodium Cancelled Potassium Cancelled Chloride Cancelled Carbon Dioxide Cancelled Anion Gap Cancelled BUN Cancelled Creatinine Cancelled Est GFR ( Amer) Cancelled Est GFR (Non-Af Amer) Cancelled Glucose Cancelled Calcium Cancelled Total Bilirubin Cancelled AST Cancelled Alkaline Phosphatase Cancelled Total Protein Cancelled Albumin Cancelled TSH 1.02 Free T4 1.01 Urine Color YELLOW Urine Appearance CLEAR Urine pH 5.0 Ur Specific [place] 1.025 Urine Protein NEGATIVE Urine Glucose (UA) >=500 H Urine Ketones NEGATIVE Urine Blood NEGATIVE Urine Nitrite NEGATIVE Ur Leukocyte Esterase NEGATIVE Urine WBC (Auto) 1 Urine RBC (Auto) 1 02/09/20 11:17 Sodium 140.0 Potassium 4.2 Chloride 99 Carbon Dioxide 34 H Anion Gap 7 BUN 16 Creatinine 1.16 Est GFR ( Amer) > 60 Est GFR (Non-Af Amer) Glucose 126 H Calcium 9.0 Total Bilirubin 0.8 AST 17 Alkaline Phosphatase 101 Total Protein 8.6 H Albumin 4.3 TSH Free T4 Urine Color Urine Appearance Urine pH Ur Specific [place] Urine Protein Urine Glucose (UA) Urine Ketones Urine Blood Urine Nitrite Ur Leukocyte Esterase Urine WBC (Auto) Urine RBC (Auto) 02/08/20 18:50 NT-Pro-B Natriuret Pep 49 Impressions: Chest X-Ray 02/08/20 00:00 IMPRESSION: NO ACUTE RADIOGRAPHIC FINDING IN THE CHEST. Venous Doppler Study 02/08/20 00:00 IMPRESSION: No evidence of deep venous thrombosis within the right lower extremity. copyright 2010 [employer]- All Rights Reserved Assessment & Plan - Diagnosis (1) Right leg swelling Is this a current diagnosis for this admission?: Yes Plan: Patient was admitted primarily for the evaluation and management of right leg swelling, venous Doppler is negative, he has bilateral leg swelling right more than left, this most likely edematous swelling, he will be treated with IV diuretic (2) Chronic constipation Is this a current diagnosis for this admission?: Yes Plan: He has chronic constipation, uses edema Dulcolax etc. (3) Hemiplegia of right dominant side as late effect of cerebral infarction Qualifiers: Hemiplegia type: spastic Qualified Code(s): I69.351 - Hemiplegia and hemiparesis following cerebral infarction affecting right dominant side Is this a current diagnosis for this admission?: Yes - Time Time Spent: Greater than 70 Minutes Medications reviewed and adjusted accordingly: Yes Anticipated Discharge Disposition: Home, Self Care Anticipated Discharge Timeframe: within 48 hours
--- NOTE | 2020-02-09 19:52 | PDOC PROGRESS REPORT ---
Subjective Date:: 02/09/20 Subjective:: Patient was admitted yesterday, he has not had any bowel movement, chronically c onstipated. Presently on furosemide infusion there is Significant decrease of the right leg swelling since the furosemide infusion was started.Patient was admitted for observation, hopefully discharge home tomorrow Reason For Visit: LOWER EXTREMITY SWELLING Physical Exam Vital Signs: Temp Pulse Resp BP Pulse Ox 98.0 F 90 22 H 136/85 H 93 02/09/20 15:57 02/09/20 15:57 02/09/20 15:57 02/09/20 15:57 02/09/20 15:57 Intake & Output 02/08/20 02/09/20 02/10/20 06:59 06:59 06:59 Intake Total 220 750 Output Total 1150 1375 Balance -930 -625 Weight 131.7 kg General appearance: PRESENT: no acute distress Eye exam: PRESENT: PERRLA Respiratory exam: PRESENT: clear to auscultation jose luis Cardiovascular exam: PRESENT: +S1, +S2 GI/Abdominal exam: PRESENT: soft Neurological exam: PRESENT: alert Results Laboratory Results: 02/08/20 18:50 02/09/20 11:17 02/08/20 02/08/20 02/09/20 18:50 23:30 09:00 Sodium Cancelled Potassium Cancelled Chloride Cancelled Carbon Dioxide Cancelled Anion Gap Cancelled BUN Cancelled Creatinine Cancelled Est GFR ( Amer) Cancelled Est GFR (Non-Af Amer) Cancelled Glucose Cancelled Calcium Cancelled Total Bilirubin Cancelled AST Cancelled Alkaline Phosphatase Cancelled Total Protein Cancelled Albumin Cancelled TSH 1.02 Free T4 1.01 Urine Color YELLOW Urine Appearance CLEAR Urine pH 5.0 Ur Specific [place] 1.025 Urine Protein NEGATIVE Urine Glucose (UA) >=500 H Urine Ketones NEGATIVE Urine Blood NEGATIVE Urine Nitrite NEGATIVE Ur Leukocyte Esterase NEGATIVE Urine WBC (Auto) 1 Urine RBC (Auto) 1 02/09/20 11:17 Sodium 140.0 Potassium 4.2 Chloride 99 Carbon Dioxide 34 H Anion Gap 7 BUN 16 Creatinine 1.16 Est GFR ( Amer) > 60 Est GFR (Non-Af Amer) Glucose 126 H Calcium 9.0 Total Bilirubin 0.8 AST 17 Alkaline Phosphatase 101 Total Protein 8.6 H Albumin 4.3 TSH Free T4 Urine Color Urine Appearance Urine pH Ur Specific [place] Urine Protein Urine Glucose (UA) Urine Ketones Urine Blood Urine Nitrite Ur Leukocyte Esterase Urine WBC (Auto) Urine RBC (Auto) 02/08/20 18:50 NT-Pro-B Natriuret Pep 49 Impressions: Chest X-Ray 02/08/20 00:00 IMPRESSION: NO ACUTE RADIOGRAPHIC FINDING IN THE CHEST. Venous Doppler Study 02/08/20 00:00 IMPRESSION: No evidence of deep venous thrombosis within the right lower extremity. 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
[2020-02-10] MEDS: NORMAL SALINE 250 ML with FUROSEMIDE 250 MG IV PRN ×2 (04:07)
[2020-02-10] MEDS: PANTOPRAZOLE SODIUM 40 MG TABLET.DR PO SCH (05:34)
[2020-02-10] MEDS ORDERED: INFLUENZA QUAD (6MOS+) 2020-21 VAC 0.5 ML SYR IM ONE (08:00)
[2020-02-10] MEDS: METOPROLOL TARTRATE 50 MG TABLET PO SCH ×2 (11:33→18:17)
[2020-02-10] MEDS: ASPIRIN 81 MG TABLET, ENT COATED PO SCH (11:33)
[2020-02-10] MEDS: METFORMIN HCL 500 MG TABLET PO SCH (11:33)
[2020-02-10] MEDS: ACETAMINOPHEN 325 MG TABLET PO PRN ×2 (11:34→20:41)
[2020-02-10] MEDS: LOSARTAN POTASSIUM 50 MG TABLET PO SCH (11:34)
[2020-02-10] MEDS: ENOXAPARIN SODIUM INJ 40 MG/0.4 ML DISP.SYRIN SUBCUT SCH (11:34)
[2020-02-10] MEDS: AMLODIPINE BESYLATE 10 MG TABLET PO SCH (11:34)
[2020-02-10] MEDS: GLIMEPIRIDE 4 MG TABLET PO SCH (11:38)
[2020-02-10] MEDS: INSULIN GLARGINE,HUM.REC.ANLOG 1,000 UNIT/10 ML VIAL SUBCUT SCH (11:38)
[2020-02-10] MEDS: GLYCOPYRROLATE 1 MG TABLET PO SCH (11:38)
[2020-02-10 18:04] LABS: ABSOLUTE EOSINOPHILS # (AUTO) 0.2 10^3/uL (0.0-0.6); ABSOLUTE LYMPHOCYTES (AUTO) 1.7 10^3/uL (0.5-4.7); ABSOLUTE MONOCYTES (AUTO) 0.8 10^3/uL (0.1-1.4); BASOPHILS % (AUTO) 0.7 % (0-2); EOSINOPHILS % (AUTO) 2.4 % (0-6); HEMATOCRIT 46.3 % (37.9-51.0); HEMOGLOBIN 14.6 g/dL (13.5-17.0); LYMPHOCYTES % (AUTO) 25.2 % (13-45); MEAN CORPUSCULAR HEMOGLOBIN 27.3 pg (27.0-33.4); MEAN CORPUSCULAR HGB CONC 31.6 g/dL (32.0-36.0); MEAN CORPUSCULAR VOLUME 86 fl (80-97); MONOCYTES % (AUTO) 11.9 % (3-13); PLATELET COUNT 175 10^3/uL (150-450); RED BLOOD COUNT 5.36 10^6/uL (4.35-5.55); RED CELL DISTRIBUTION WIDTH 17.8 % (11.5-14.0); SEGMENTED NEUTROPHILS % (AUTO) 59.8 % (42-78); TOTAL CELLS COUNTED % (AUTO) 100 %; WHITE BLOOD COUNT 6.7 10^3/uL (4.0-10.5)
[2020-02-10 18:27] LABS: ALBUMIN 4.4 g/dL (3.5-5.0); ALKALINE PHOSPHATASE 92 U/L (38-126); ANION GAP 9 (5-19); ASPARTATE AMINO TRANSFERASE 15 U/L (17-59); BILIRUBIN,DIRECT 0.1 mg/dL (0.0-0.4); BILIRUBIN,TOTAL 0.8 mg/dL (0.2-1.3); BLOOD UREA NITROGEN 22 mg/dL (7-20); CALCIUM 9.3 mg/dL (8.4-10.2); CARBON DIOXIDE 37 mmol/L (22-30); CHLORIDE 95 mmol/L (98-107); GLUCOSE 130 mg/dL (75-110); POTASSIUM 3.9 mmol/L (3.6-5.0); TOTAL PROTEIN 8.7 g/dL (6.3-8.2)
--- NOTE | 2020-02-10 20:49 | PDOC DISCHARGE SUMMARY ---
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 Is this a current diagnosis for this admission?: Yes - Additional Information Referrals: JOSEPHINE BUCK MD [Primary Care Provider] - 02/21/20 11:00 am Home Medications: RX: Amlodipine Besylate [Norvasc 10 mg Tablet] 10 mg PO DAILY 07/09/16 RX: Glycopyrrolate [Robinul Forte 1 mg Tablet] 1 mg PO DAILY 07/09/16 RX: Metoprolol Tartrate [Lopressor 50 mg Tablet] 50 mg PO BIDBS 07/09/16 RX: Omeprazole 40 mg PO Q6AM 07/09/16 RX: Aspirin [Aspirin EC] 81 mg PO DAILY 07/27/17 RX: Atorvastatin Calcium [Lipitor 40 mg Tablet] 40 mg PO QHS 06/07/19 RX: Dapagliflozin Propanediol [Farxiga] 10 mg PO DAILY 06/07/19 RX: Glimepiride [Amaryl 4 mg Tablet] 4 mg PO DAILY 06/07/19 RX: Insulin Glargine,Hum.rec.anlog [Lantus Insulin 100 Unit/1 ml 10 ml] 25 units SQ DAILY 06/07/19 RX: Linaclotide [Linzess 145 Mcg Capsule] 145 mcg PO DAILY 06/07/19 RX: Losartan Potassium 100 mg PO DAILY 06/07/19 RX: Metformin HCl [Glucophage] 1,000 mg PO DAILY 06/07/19 RX: Phentermine HCl [Adipex-P] 30 mg PO DAILY 06/07/19 RX: Furosemide [Lasix 40 mg Tablet] 40 mg PO QAM #30 tablet 06/10/19 RX: Semaglutide [Ozempic] 0.5 mg SQ MO 02/08/20 History of Present Illiness History of Present Illness: JANIE STORM is a 64 year old male,He has a history of CVA with right- sided hemiplegia, He came to the office for evaluation of severe swelling of the right leg, because of immobility and also there is paralysis of the Right side of his body ,I suspected deep vein thrombosis, he was admitted directly from the office into the hospital, a venous Doppler was done it was negative for DVT.Patient also complained of severe constipation despite taking Linzess and also Amitiza for constipation, he has chronic constipation this problem is ongoing for several years it is Exacerbated because of sedentary lifestyle due to cerebral infarction with right-sided hemiplegia Hospital Course Hospital Course: Patient was admitted for the management of right leg swelling, venous Doppler negative for deep vein thrombosis, he was treated with intravenous furosemide, he also had constipation treated with enema Physical Exam Vital Signs: Temp Pulse Resp BP Pulse Ox 98.1 F 90 20 138/86 H 94 02/10/20 16:00 02/10/20 16:00 02/10/20 16:00 02/10/20 16:00 02/10/20 16:00 Intake & Output 02/09/20 02/10/20 02/11/20 06:59 06:59 06:59 Intake Total 220 1275 770 Output Total 1150 2225 1050 Balance -930 -950 -280 Weight 131.7 kg 131.7 kg 131.7 kg General appearance: PRESENT: no acute distress Eye exam: PRESENT: PERRLA Respiratory exam: PRESENT: clear to auscultation jose luis Cardiovascular exam: PRESENT: +S1, +S2 GI/Abdominal exam: PRESENT: soft Neurological exam: PRESENT: alert, motor sensory deficit Results Laboratory Results: WBC 6.7 10^3/uL (4.0-10.5) 02/10/20 17:51 RBC 5.36 10^6/uL (4.35-5.55) 02/10/20 17:51 Hgb 14.6 g/dL (13.5-17.0) 02/10/20 17:51 Hct 46.3 % (37.9-51.0) 02/10/20 17:51 MCV 86 fl (80-97) 02/10/20 17:51 MCH 27.3 pg (27.0-33.4) 02/10/20 17:51 MCHC 31.6 g/dL (32.0-36.0) L 02/10/20 17:51 RDW 17.8 % (11.5-14.0) H 02/10/20 17:51 Plt Count 175 10^3/uL (150-450) 02/10/20 17:51 Lymph % (Auto) 25.2 % (13-45) 02/10/20 17:51 [place] % (Auto) 11.9 % (3-13) 02/10/20 17:51 Eos % (Auto) 2.4 % (0-6) 02/10/20 17:51 Baso % (Auto) 0.7 % (0-2) 02/10/20 17:51 Absolute Neuts (auto) 4.0 10^3/uL (1.7-8.2) 02/10/20 17:51 Absolute Lymphs (auto) 1.7 10^3/uL (0.5-4.7) 02/10/20 17:51 Absolute Monos (auto) 0.8 10^3/uL (0.1-1.4) 02/10/20 17:51 Absolute Eos (auto) 0.2 10^3/uL (0.0-0.6) 02/10/20 17:51 Absolute Basos (auto) 0.0 10^3/uL (0.0-0.2) 02/10/20 17:51 Seg Neutrophils % 59.8 % (42-78) 02/10/20 17:51 D-Dimer 0.40 ug/mL (0.00-0.50) 02/08/20 18:50 Sodium 140.5 mmol/L (137-145) 02/10/20 17:51 Potassium 3.9 mmol/L (3.6-5.0) 02/10/20 17:51 Chloride 95 mmol/L (98-107) L 02/10/20 17:51 Carbon Dioxide 37 mmol/L (22-30) H 02/10/20 17:51 Anion Gap 9 (5-19) 02/10/20 17:51 BUN 22 mg/dL (7-20) H 02/10/20 17:51 Creatinine 1.32 mg/dL (0.52-1.25) H 02/10/20 17:51 Est GFR ( Amer) > 60 (>60) 02/10/20 17:51 Est GFR (Non-Af Amer) Cancelled 02/09/20 09:00 Est GFR (MDRD) Non-Af 55 (>60) L 02/10/20 17:51 Glucose 130 mg/dL (75-110) H 02/10/20 17:51 POC Glucose 107 mg/dL (70-110) 02/10/20 16:09 Hemoglobin A1c % 7.5 % (4.7-6.0) H 02/08/20 18:50 Calcium 9.3 mg/dL (8.4-10.2) 02/10/20 17:51 Total Bilirubin 0.8 mg/dL (0.2-1.3) 02/10/20 17:51 Direct Bilirubin 0.1 mg/dL (0.0-0.4) 02/10/20 17:51 Neonat Total Bilirubin Not Reportable 02/10/20 17:51 Neonat Direct Bilirubin Not Reportable 02/10/20 17:51 Neonat Indirect Bili Not Reportable 02/10/20 17:51 AST 15 U/L (17-59) L 02/10/20 17:51 ALT 16 U/L (<50) 02/10/20 17:51 Alkaline Phosphatase 92 U/L (38-126) 02/10/20 17:51 NT-Pro-B Natriuret Pep 49 pg/mL (<125) 02/08/20 18:50 Total Protein 8.7 g/dL (6.3-8.2) H 02/10/20 17:51 Albumin 4.4 g/dL (3.5-5.0) 02/10/20 17:51 EGFR Cancelled 02/09/20 09:00 TSH 1.02 uIU/mL (0.47-4.68) 02/08/20 18:50 Free T4 1.01 ng/dL (0.78-2.19) 02/08/20 18:50 Urine Color YELLOW 02/08/20 23:30 Urine Appearance CLEAR 02/08/20 23:30 Urine pH 5.0 (5.0-9.0) 02/08/20 23:30 Ur Specific [place] 1.025 02/08/20 23:30 Urine Protein NEGATIVE mg/dL (NEGATIVE) 02/08/20 23:30 Urine Glucose (UA) >=500 mg/dL (NEGATIVE) H 02/08/20 23:30 Urine Ketones NEGATIVE mg/dL (NEGATIVE) 02/08/20 23:30 Urine Blood NEGATIVE (NEGATIVE) 02/08/20 23:30 Urine Nitrite NEGATIVE (NEGATIVE) 02/08/20 23:30 Urine Bilirubin NEGATIVE (NEGATIVE) 02/08/20 23:30 Urine Urobilinogen 2.0 mg/dL (<2.0) H 02/08/20 23:30 Ur Leukocyte Esterase NEGATIVE (NEGATIVE) 02/08/20 23:30 Urine WBC (Auto) 1 /HPF 02/08/20 23:30 Urine RBC (Auto) 1 /HPF 02/08/20 23:30 Squamous Epi Cells Auto <1 /HPF 02/08/20 23:30 Urine Mucus (Auto) OCC /LPF 02/08/20 23:30 Urine Creatinine 151.7 mg/dL (22-328) 02/08/20 23:30 Urine Creatinine 153.9 mg/dL (22-328) 02/08/20 23:30 Protein/Creatinin Ratio 0.1 mg/mg (0.0-0.2) 02/08/20 23:30 Urine Total Protein 13.8 mg/dL (<12) H 02/08/20 23:30 Urine Total Protein 14.1 mg/dL (<12) H 02/08/20 23:30 Urine Ascorbic Acid NEGATIVE (NEGATIVE) 02/08/20 23:30 02/08/20 18:50 NT-Pro-B Natriuret Pep 49 Impressions: Chest X-Ray 02/08/20 00:00 IMPRESSION: NO ACUTE RADIOGRAPHIC FINDING IN THE CHEST. Venous Doppler Study 02/08/20 00:00 IMPRESSION: No evidence of deep venous thrombosis within the right lower extremity. copyright 2010 [employer]- All Rights Reserved Stroke Is this a Stroke Patient?: No Acute Heart Failure Is this a Heart Failure Patient?: No
[2020-02-10] MEDS: ATORVASTATIN CALCIUM 40 MG TABLET PO SCH (22:02)
[2020-02-11] MEDS: ACETAMINOPHEN 325 MG TABLET PO PRN (04:02)
[2020-02-11] MEDS: PANTOPRAZOLE SODIUM 40 MG TABLET.DR PO SCH (05:08)
[2020-02-11 09:11] VITALS: BP 138/86
[2020-02-11] MEDS: ASPIRIN 81 MG TABLET, ENT COATED PO SCH (09:31)
[2020-02-11] MEDS: LOSARTAN POTASSIUM 50 MG TABLET PO SCH (09:31)
[2020-02-11] MEDS: METOPROLOL TARTRATE 50 MG TABLET PO SCH (09:31)
[2020-02-11] MEDS: METFORMIN HCL 500 MG TABLET PO SCH (09:31)
[2020-02-11] MEDS: AMLODIPINE BESYLATE 10 MG TABLET PO SCH (09:31)
[2020-02-11] MEDS: GLYCOPYRROLATE 1 MG TABLET PO SCH (09:32)
[2020-02-11] MEDS: INSULIN GLARGINE,HUM.REC.ANLOG 1,000 UNIT/10 ML VIAL SUBCUT SCH (09:32)
[2020-02-11] MEDS: GLIMEPIRIDE 4 MG TABLET PO SCH (09:32)
[2020-02-11] MEDS: ENOXAPARIN SODIUM INJ 40 MG/0.4 ML DISP.SYRIN SUBCUT SCH (09:32)
[2020-02-14] MEDS ORDERED: (PENDING PHARMACY ID) (Semaglutide [Ozempic] 0.25 MG/0.2 ML Pen.Injctr) SQ SCH (22:34)
== END 2020-02-11 12:07 | disposition home or self-care (01) ==
LOC: ER 16:50 → EH 20:03 → INTOOBSV 20:03 → 4S 23:08
PROVIDERS: ADMIT Internal Medicine; ATTEND Internal Medicine
DX: I69.351 Hemiplegia and hemiparesis following cerebral infarction affecting right dominant side (principal); K59.09 Other constipation; R60.0 Localized edema; I25.10 Atherosclerotic heart disease of native coronary artery without angina pectoris; E78.5 Hyperlipidemia, unspecified; E11.9 Type 2 diabetes mellitus without complications; I10 Essential (primary) hypertension; J44.9 Chronic obstructive pulmonary disease, unspecified; Z79.899 Other long term (current) drug therapy; Z87.891 Personal history of nicotine dependence; Z79.82 Long term (current) use of aspirin; Z79.4 Long term (current) use of insulin; Z23 Encounter for immunization
CPT/HCPCS: 99285; 36415 ×3; 84439; 82962 ×2; 84156; 84443; 82570; 85025; 85027; 80076; 80048; 80053 ×2; 81001; 83036; 85379; 83880; 93971; 71046; 90686; G0378 ×5; G0008; A9270 ×32; J1940 ×2; J1650 ×3; J7050 ×2; 90471; J1815; J3490